=== PATIENT | male | born 1955 | race Caucasian/White ===

== ENCOUNTER 2017-06-30 17:55 | Inpatient (IN) | payer MEDICARE, OTHER ==
[~2017-06-30 17:55] MED LIST: ETOMIDATE 20 MG INJ; SUCCINYLCHOLINE CHLORIDE 100 MG/5 ML SYG IV
[2017-06-30] MEDS: ALBUTEROL 0.5% (NEB) 2.5 MG/0.5 ML AMP INH (18:14)
[2017-06-30] MEDS: IPRATROPIUM (NEB) 0.5 MG/2.5 ML AMP INH (18:14)
[2017-06-30 18:28] LABS: ADD MAN DIFF? NO
[2017-06-30 18:31] LABS: BASOPHILS % 0.2 % (0.0-2.0); EOSINOPHILS # 0.2 10^3/ul (0.0-0.5); EOSINOPHILS % 2.5 % (0.0-7.0); HEMATOCRIT 44.2 % (42.0-52.0); HEMOGLOBIN 13.3 g/dl (14.0-18.0); LYMPHOCYTES # 1.6 10^3/ul (0.8-2.9); LYMPHOCYTES % 17.5 % (15.0-51.0); MEAN CORPUSCULAR HEMOGLOBIN 29.2 pg (29.0-33.0); MEAN CORPUSCULAR HGB CONC 30.1 g/dl (32.0-37.0); MEAN CORPUSCULAR VOLUME 97.1 fl (82.0-101.0); MEAN PLATELET VOLUME 10.7 fl (7.4-10.4); MONOCYTE # 0.8 10^3/ul (0.3-0.9); MONOCYTES % 8.8 % (0.0-11.0); NEUTROPHIL # 6.5 10^3/ul (1.6-7.5); NEUTROPHILS % 70.7 % (39.0-77.0); PLATELET COUNT 201 10^3/UL (140-415); RED BLOOD COUNT 4.55 10^6/ul (4.70-6.10); RED CELL DISTRIBUTION WIDTH 12.8 % (11.5-14.5)
[2017-06-30 18:31] LABS: WHITE BLOOD COUNT 9.2 10^3/ul (4.8-10.8)
[2017-06-30 18:51] LABS: INR 1.02; PROTIME 13.5 Sec (11.9-14.9); PT RATIO 1.1
[2017-06-30 18:52] LABS: PARTIAL THROMBOPLASTIN TIME 26.4 Sec (25.0-35.0)
[2017-06-30 18:54] LABS: LACTIC ACID 1.2 mmol/L (0.5-2.0)
[2017-06-30] MEDS ORDERED: morphine 4 MG/ML VIAL (19:05)
[2017-06-30] MEDS ORDERED: ONDANSETRON 4 MG INJ (19:05)
[2017-06-30 19:06] LABS: ADD UMIC NO; UR ASCORBIC ACID NEGATIVE (NEGATIVE); UR BILIRUBIN (Dip) NEGATIVE (NEGATIVE); UR BLOOD (Dip) NEGATIVE (NEGATIVE); UR CLARITY CLEAR (CLEAR); UR COLOR YELLOW (YELLOW); UR GLUCOSE (Dip) NEGATIVE (NEGATIVE); UR KETONES (Dip) NEGATIVE (NEGATIVE); UR LEUKOCYTE ESTERASE (Dip) NEGATIVE Leu/ul (NEGATIVE); UR NITRITE (Dip) NEGATIVE (NEGATIVE); UR SPECIFIC GRAVITY (Dip) 1.019 (1.003-1.030); UR TOTAL PROTEIN (Dip) NEGATIVE (NEGATIVE); UR UROBILINOGEN (Dip) NEGATIVE (NEGATIVE)
[2017-06-30] MEDS: ONDANSETRON 4 MG INJ IV ×2 (19:07→20:22)
[2017-06-30] MEDS: morphine 4 MG/ML VIAL IV (19:07)
[2017-06-30] MEDS: METHYLPREDNISOLONE 125 MG INJ IV (19:07)
[2017-06-30 19:11] LABS: ALANINE AMINOTRANSFERASE 26 IU/L (13-69); ALBUMIN 4.1 g/dl (3.3-4.9); ALKALINE PHOSPHATASE 68 IU/L (42-121); ASPARTATE AMINO TRANSFERASE 22 IU/L (15-46); BILIRUBIN,INDIRECT 0.6 mg/dl (0-1.1); BILIRUBIN,TOTAL 0.6 mg/dl (0.2-1.3); BLOOD UREA NITROGEN 17 mg/dl (7-20); CHLORIDE 96 mmol/L (97-110); CREATINE KINASE 105 IU/L (23-200); CREATININE 0.67 mg/dl (0.61-1.24); GLUCOSE 121 mg/dl (70-220); LIPASE 88 U/L (23-300); POTASSIUM 4.7 mmol/L (3.5-5.1); SODIUM 147 mmol/L (135-144); TOTAL PROTEIN 7.8 g/dl (6.1-8.1)
[2017-06-30 19:19] LABS: ANION GAP 12 (8-16)
[2017-06-30 19:22] LABS: CARBON DIOXIDE 44 mmol/L (21-31)
[2017-06-30 19:25] LABS: B-TYPE NATRIURETIC PEPTIDE 45 PG/ML (0-125); CK INDEX 2.8
[2017-06-30 19:31] LABS: CK-MB 2.95 ng/ml (0.0-2.4); TROPONIN-I < 0.012 ng/ml (0.000-0.120)
[2017-06-30 19:36] LABS: AADO2 Arterial 67.8 mmHg (7.0-24.0); Allen Test ACCEPTAB; Arterial Base Excess 8.9 mmol/L (-3.0-3); Arterial Fraction of Oxyhgb 93.8 % (93.0-99.0); Arterial HCO3 41.3 mmol/L (22.0-26.0); Arterial MetHb 0.3 % (0.0-1.5); Arterial Total Hemglobin 14.1 g/dl (12.0-18.0); Arterial pCO2 107.2 mmhg (35-45); MODE NASAL CANNULA; Site Right Radial
[2017-06-30 20:32] LABS: ETHANOL < 10.0 mg/dl
[2017-06-30 21:02] LABS: AADO2 Arterial 107.3 mmHg (7.0-24.0); Allen Test ACCEPTAB; Arterial Base Excess 10.8 mmol/L (-3.0-3); Arterial Blood Gas Oxygen Sat 99.2 mmHG (95.0-98.0); Arterial COHb 0.5 % (0.0-3.0); Arterial Fraction of Oxyhgb 98.2 % (93.0-99.0); Arterial HCO3 45.2 mmol/L (22.0-26.0); Arterial MetHb 0.5 % (0.0-1.5); Arterial Total Hemglobin 14.2 g/dl (12.0-18.0); Arterial pCO2 131.4 mmhg (35-45); Blood Gas IEPAP 15/5; MODE MASK - BIPAP; Site Left Radial
[2017-06-30] MEDS: LORAZEPAM 2 MG INJ IV (21:10)
[2017-06-30] MEDS: SUCCINYLCHOLINE CHLORIDE 100 MG/5 ML SYG IV (21:20)
[2017-06-30] MEDS: ETOMIDATE 20 MG INJ IV (21:20)
[2017-06-30] MEDS: PROPOFOL 100 ML IV (21:38)
[2017-06-30 23:26] LABS: AADO2 Arterial 155.2 mmHg (7.0-24.0); Allen Test ACCEPTAB; Arterial Base Excess 9.6 mmol/L (-3.0-3); Arterial Blood Gas Oxygen Sat 99.6 mmHG (95.0-98.0); Arterial COHb 0.6 % (0.0-3.0); Arterial Fraction of Oxyhgb 98.6 % (93.0-99.0); Arterial MetHb 0.4 % (0.0-1.5); Arterial Total Hemglobin 14.2 g/dl (12.0-18.0); Arterial pCO2 118.4 mmhg (35-45); MODE VENT - AC; Site Left Radial
[2017-06-30] MEDS ORDERED: GLUCAGON 1 MG INJ IM (23:45)
[2017-06-30] MEDS ORDERED: DEXTROSE 50% 50 ML SYRINGE IV ×2 (23:45)
[2017-06-30] MEDS ORDERED: GLUCOSE GEL 15 GRAM TUBE PO ×2 (23:45)
[2017-06-30] MEDS ORDERED: GLUCOSE GEL 15 GRAM TUBE BUCCAL (23:45)
[2017-07-01] MEDS ORDERED: FENTAnyl (DRIP) 1000 mcg/100mL 100 ML IV
[2017-07-01] MEDS: PROPOFOL 100 ML IV ×7 (00:22→23:36)
[2017-07-01] MEDS ORDERED: ACETAMINOPHEN 650 MG SUPP PR (00:30)
[2017-07-01] MEDS ORDERED: ONDANSETRON 4 MG INJ IV (00:30)
[2017-07-01] MEDS ORDERED: MIDAZOLAM (DRIP) 50 mg/50 mL 50 ML IV ×2 (00:30→01:00)
[2017-07-01] MEDS: FENTAnyl (DRIP) 1000 mcg/100mL 100 ML IV ×2 (01:03→19:41)
[2017-07-01] MEDS: DEXTROSE 5%-0.45% NACL 1,000 ML IV ×3 (01:19→19:44)
[2017-07-01 01:36] LABS: AADO2 Arterial 191.5 mmHg (7.0-24.0); Allen Test ACCEPTAB; Arterial Base Excess 10.2 mmol/L (-3.0-3); Arterial Blood Gas Oxygen Sat 95.3 mmHG (95.0-98.0); Arterial COHb 0.7 % (0.0-3.0); Arterial Fraction of Oxyhgb 94.3 % (93.0-99.0); Arterial HCO3 39.8 mmol/L (22.0-26.0); Arterial MetHb 0.3 % (0.0-1.5); Arterial Total Hemglobin 13.9 g/dl (12.0-18.0); Arterial pCO2 80.4 mmhg (35-45); Blood Gas Mean Airway Pressure 16; MODE VENT - AC; Site Right Radial
[2017-07-01] MEDS: IPRATROPIUM (HFA) 12.9 GM INHALER INH ×4 (02:00→19:05)
[2017-07-01] MEDS: ALBUTEROL HFA 8 GM INHALER INH ×4 (02:00→19:05)
[2017-07-01] MEDS ORDERED: IPRATROPIUM (HFA) 12.9 GM INHALER INH ×2 (02:00→08:00)
[2017-07-01] MEDS ORDERED: ALBUTEROL HFA 8 GM INHALER INH ×2 (02:00→08:00)
[2017-07-01 05:45] LABS: AADO2 Arterial 203.9 mmHg (7.0-24.0); Allen Test ACCEPTAB; Arterial Base Excess 10.5 mmol/L (-3.0-3); Arterial Blood Gas Oxygen Sat 98.4 mmHG (95.0-98.0); Arterial COHb 0.5 % (0.0-3.0); Arterial Fraction of Oxyhgb 97.7 % (93.0-99.0); Arterial HCO3 34.6 mmol/L (22.0-26.0); Arterial MetHb 0.2 % (0.0-1.5); Arterial Total Hemglobin 13.5 g/dl (12.0-18.0); Arterial pCO2 43.4 mmhg (35-45); Blood Gas Mean Airway Pressure 17; MODE VENT - AC; Site Right Radial
[2017-07-01 05:49] LABS: ADD MAN DIFF? NO
[2017-07-01 05:56] LABS: HEMATOCRIT 40.7 % (42.0-52.0); HEMOGLOBIN 12.6 g/dl (14.0-18.0); LYMPHOCYTES # 0.6 10^3/ul (0.8-2.9); LYMPHOCYTES % 6.6 % (15.0-51.0); MEAN CORPUSCULAR VOLUME 93.8 fl (82.0-101.0); MEAN PLATELET VOLUME 11.1 fl (7.4-10.4); MONOCYTE # 0.2 10^3/ul (0.3-0.9); MONOCYTES % 2.1 % (0.0-11.0); NEUTROPHIL # 8.2 10^3/ul (1.6-7.5); PLATELET COUNT 189 10^3/UL (140-415); RED BLOOD COUNT 4.34 10^6/ul (4.70-6.10); RED CELL DISTRIBUTION WIDTH 12.9 % (11.5-14.5)
[2017-07-01 05:56] LABS: WHITE BLOOD COUNT 9.1 10^3/ul (4.8-10.8)
[2017-07-01 06:06] LABS: HEMOGLOBIN A1C 6.8 % (0-5.9)
[2017-07-01] MEDS: INSULIN ASPART [NOVOLOG] 3 ML PEN SC ×5 (06:08→23:39)
[2017-07-01] MEDS: METHYLPREDNISOLONE 125 MG INJ IV ×3 (06:14→18:06)
[2017-07-01 06:17] LABS: ANION GAP 16 (8-16); BLOOD UREA NITROGEN 20 mg/dl (7-20); CALCIUM 9.2 mg/dl (8.4-10.2); CARBON DIOXIDE 34 mmol/L (21-31); CHLORIDE 99 mmol/L (97-110); CREATININE 0.65 mg/dl (0.61-1.24); GLUCOSE 223 mg/dl (70-220); POTASSIUM 4.3 mmol/L (3.5-5.1); SODIUM 145 mmol/L (135-144)
[2017-07-01] MEDS: SOD CHLORIDE 0.9% 250 ML IV (06:53)
[2017-07-01] MEDS: SALMETEROL/FLUTICASONE 500/50 INHA INH ×2 (09:00→21:00)
[2017-07-01] MEDS: HEPARIN 5,000 UNIT/0.5 ML VIAL SC ×2 (10:27→20:46)
[2017-07-01] MEDS: INSULIN GLARGINE [LANtus] 3 ML PEN SC (20:45)
[2017-07-02] MEDS: METHYLPREDNISOLONE 125 MG INJ IV ×5 (00:06→23:34)
[2017-07-02] MEDS: PROPOFOL 100 ML IV ×4 (02:55→12:11)
[2017-07-02] MEDS: INSULIN ASPART [NOVOLOG] 3 ML PEN SC ×4 (05:39→23:37)
[2017-07-02 05:40] LABS: ADD MAN DIFF? NO
[2017-07-02] MEDS: DEXTROSE 5%-0.45% NACL 1,000 ML IV ×2 (05:40→21:39)
[2017-07-02 05:58] LABS: WHITE BLOOD COUNT 10.8 10^3/ul (4.8-10.8)
[2017-07-02 05:58] LABS: HEMATOCRIT 38.5 % (42.0-52.0); HEMOGLOBIN 12.4 g/dl (14.0-18.0); LYMPHOCYTES # 0.9 10^3/ul (0.8-2.9); LYMPHOCYTES % 8.1 % (15.0-51.0); MEAN CORPUSCULAR HEMOGLOBIN 29.4 pg (29.0-33.0); MEAN CORPUSCULAR HGB CONC 32.2 g/dl (32.0-37.0); MEAN CORPUSCULAR VOLUME 91.2 fl (82.0-101.0); MEAN PLATELET VOLUME 11.8 fl (7.4-10.4); MONOCYTE # 0.3 10^3/ul (0.3-0.9); MONOCYTES % 2.9 % (0.0-11.0); NEUTROPHIL # 9.6 10^3/ul (1.6-7.5); NEUTROPHILS % 88.4 % (39.0-77.0); PLATELET COUNT 196 10^3/UL (140-415); RED BLOOD COUNT 4.22 10^6/ul (4.70-6.10); RED CELL DISTRIBUTION WIDTH 13.4 % (11.5-14.5)
[2017-07-02 06:33] LABS: ANION GAP 15 (8-16); BLOOD UREA NITROGEN 20 mg/dl (7-20); CALCIUM 9.1 mg/dl (8.4-10.2); CARBON DIOXIDE 31 mmol/L (21-31); CHLORIDE 99 mmol/L (97-110); CREATININE 0.66 mg/dl (0.61-1.24); GLUCOSE 205 mg/dl (70-220); MAGNESIUM 1.9 mg/dl (1.7-2.5); POTASSIUM 3.4 mmol/L (3.5-5.1); SODIUM 142 mmol/L (135-144)
[2017-07-02] MEDS: IPRATROPIUM (HFA) 12.9 GM INHALER INH ×2 (07:20→13:29)
[2017-07-02] MEDS: ALBUTEROL HFA 8 GM INHALER INH ×2 (07:20→13:29)
[2017-07-02 07:50] LABS: AADO2 Arterial 159.2 mmHg (7.0-24.0); Allen Test ACCEPTAB; Arterial Blood Gas Oxygen Sat 96.6 mmHG (95.0-98.0); Arterial COHb 0.3 % (0.0-3.0); Arterial Fraction of Oxyhgb 96.1 % (93.0-99.0); Arterial HCO3 30.2 mmol/L (22.0-26.0); Arterial MetHb 0.2 % (0.0-1.5); Arterial Total Hemglobin 13.2 g/dl (12.0-18.0); Arterial pCO2 37.7 mmhg (35-45); MODE VENT - AC; Site Right Radial
[2017-07-02] MEDS: FENTAnyl (DRIP) 1000 mcg/100mL 100 ML IV (07:51)
[2017-07-02] MEDS: SALMETEROL/FLUTICASONE 500/50 INHA INH ×2 (08:18→21:00)
[2017-07-02] MEDS: HEPARIN 5,000 UNIT/0.5 ML VIAL SC ×2 (08:24→21:37)
[2017-07-02] MEDS: FUROSEMIDE 40 MG INJ IV (10:38)
[2017-07-02] MEDS: POTASSIUM CHLORIDE 100 ML IVPB ×2 (10:38→12:09)
[2017-07-02] MEDS: LORAZEPAM 2 MG INJ IV ×3 (13:43→23:29)
[2017-07-02 17:34] LABS: AADO2 Arterial 110.4 mmHg (7.0-24.0); Allen Test ACCEPTAB; Arterial Base Excess 6.3 mmol/L (-3.0-3); Arterial Blood Gas Oxygen Sat 96.9 mmHG (95.0-98.0); Arterial COHb 0.2 % (0.0-3.0); Arterial Fraction of Oxyhgb 96.3 % (93.0-99.0); Arterial HCO3 34.5 mmol/L (22.0-26.0); Arterial MetHb 0.4 % (0.0-1.5); Arterial Total Hemglobin 14.1 g/dl (12.0-18.0); Blood Gas PS 10; MODE VENT - CPAP; Site Right Radial
[2017-07-02] MEDS ORDERED: FENTAnyl (DRIP) 1000 mcg/100mL 100 ML IV (18:00)
[2017-07-02] MEDS: INSULIN GLARGINE [LANtus] 3 ML PEN SC (20:06)
[2017-07-02] MEDS: ALBUTEROL/IPRATROPIUM (NEB) 3 ML AMP HHN (20:41)
[2017-07-03] MEDS: ALBUTEROL/IPRATROPIUM (NEB) 3 ML AMP HHN ×4 (01:01→19:27)
[2017-07-03 05:52] LABS: ADD MAN DIFF? NO
[2017-07-03 05:59] LABS: WHITE BLOOD COUNT 15.8 10^3/ul (4.8-10.8)
[2017-07-03 05:59] LABS: BASOPHILS % 0.1 % (0.0-2.0); HEMATOCRIT 40.6 % (42.0-52.0); HEMOGLOBIN 12.6 g/dl (14.0-18.0); LYMPHOCYTES # 0.6 10^3/ul (0.8-2.9); MEAN CORPUSCULAR VOLUME 93.5 fl (82.0-101.0); MEAN PLATELET VOLUME 11.3 fl (7.4-10.4); MONOCYTE # 0.4 10^3/ul (0.3-0.9); MONOCYTES % 2.2 % (0.0-11.0); NEUTROPHIL # 14.8 10^3/ul (1.6-7.5); NEUTROPHILS % 93.2 % (39.0-77.0); PLATELET COUNT 194 10^3/UL (140-415); RED BLOOD COUNT 4.34 10^6/ul (4.70-6.10); RED CELL DISTRIBUTION WIDTH 13.6 % (11.5-14.5)
[2017-07-03] MEDS: INSULIN ASPART [NOVOLOG] 3 ML PEN SC ×4 (06:00→21:15)
[2017-07-03] MEDS: METHYLPREDNISOLONE 125 MG INJ IV ×4 (06:00→23:54)
[2017-07-03 06:37] LABS: ANION GAP 16 (8-16); BLOOD UREA NITROGEN 26 mg/dl (7-20); CALCIUM 9.1 mg/dl (8.4-10.2); CARBON DIOXIDE 36 mmol/L (21-31); CHLORIDE 100 mmol/L (97-110); CREATININE 0.77 mg/dl (0.61-1.24); GLUCOSE 164 mg/dl (70-220); MAGNESIUM 2.1 mg/dl (1.7-2.5); PHOSPHORUS 4.2 mg/dl (2.5-4.9); SODIUM 148 mmol/L (135-144)
[2017-07-03] MEDS: FUROSEMIDE 40 MG INJ IV ×2 (07:43→18:23)
[2017-07-03] MEDS: morphine 2 MG INJ IV ×3 (07:43→15:26)
[2017-07-03] MEDS: LORAZEPAM 2 MG INJ IV ×3 (07:43→13:34)
[2017-07-03] MEDS: HEPARIN 5,000 UNIT/0.5 ML VIAL SC ×2 (07:55→21:16)
[2017-07-03] MEDS: SALMETEROL/FLUTICASONE 500/50 INHA INH ×2 (09:00→21:11)
[2017-07-03 09:01] LABS: AADO2 Arterial 86.6 mmHg (7.0-24.0); Allen Test ACCEPTAB; Arterial Base Excess 7.7 mmol/L (-3.0-3); Arterial Blood Gas Oxygen Sat 90.1 mmHG (95.0-98.0); Arterial COHb 0.4 % (0.0-3.0); Arterial Fraction of Oxyhgb 89.6 % (93.0-99.0); Arterial HCO3 34.5 mmol/L (22.0-26.0); Arterial MetHb 0.2 % (0.0-1.5); Arterial pCO2 57.6 mmhg (35-45); MODE NASAL CANNULA; Site Right Radial
[2017-07-03] MEDS: INSULIN GLARGINE [LANtus] 3 ML PEN SC (21:16)
[2017-07-04] MEDS: ALBUTEROL/IPRATROPIUM (NEB) 3 ML AMP HHN ×4 (01:00→19:52)
[2017-07-04] MEDS: ACCU-CHEK XX (02:29)
[2017-07-04 05:27] LABS: ADD MAN DIFF? NO
[2017-07-04 05:30] LABS: BASOPHILS % 0.1 % (0.0-2.0); HEMATOCRIT 42.2 % (42.0-52.0); HEMOGLOBIN 13.2 g/dl (14.0-18.0); LYMPHOCYTES # 0.6 10^3/ul (0.8-2.9); LYMPHOCYTES % 4.8 % (15.0-51.0); MEAN CORPUSCULAR HEMOGLOBIN 29.2 pg (29.0-33.0); MEAN CORPUSCULAR HGB CONC 31.3 g/dl (32.0-37.0); MEAN CORPUSCULAR VOLUME 93.4 fl (82.0-101.0); MEAN PLATELET VOLUME 11.8 fl (7.4-10.4); MONOCYTE # 0.7 10^3/ul (0.3-0.9); MONOCYTES % 5.3 % (0.0-11.0); NEUTROPHIL # 11.5 10^3/ul (1.6-7.5); NEUTROPHILS % 89.3 % (39.0-77.0); PLATELET COUNT 186 10^3/UL (140-415); RED BLOOD COUNT 4.52 10^6/ul (4.70-6.10); RED CELL DISTRIBUTION WIDTH 13.5 % (11.5-14.5)
[2017-07-04 05:30] LABS: WHITE BLOOD COUNT 12.9 10^3/ul (4.8-10.8)
[2017-07-04] MEDS: FUROSEMIDE 40 MG INJ IV ×2 (05:33→17:13)
[2017-07-04] MEDS: METHYLPREDNISOLONE 125 MG INJ IV ×4 (05:33→23:30)
[2017-07-04 05:56] LABS: ANION GAP 13 (8-16); BLOOD UREA NITROGEN 26 mg/dl (7-20); CALCIUM 9.1 mg/dl (8.4-10.2); CARBON DIOXIDE 38 mmol/L (21-31); CHLORIDE 101 mmol/L (97-110); CREATININE 0.74 mg/dl (0.61-1.24); GLUCOSE 127 mg/dl (70-220); PHOSPHORUS 3.9 mg/dl (2.5-4.9); POTASSIUM 3.7 mmol/L (3.5-5.1); SODIUM 148 mmol/L (135-144)
[2017-07-04 07:10] LABS: MAGNESIUM 2.4 mg/dl (1.7-2.5)
[2017-07-04] MEDS: HEPARIN 5,000 UNIT/0.5 ML VIAL SC ×2 (08:23→21:38)
[2017-07-04] MEDS: INSULIN ASPART [NOVOLOG] 3 ML PEN SC ×4 (08:29→21:38)
[2017-07-04] MEDS: POTASSIUM CHLORIDE (SR) 20 MEQ TAB PO (09:39)
[2017-07-04] MEDS: SALMETEROL/FLUTICASONE 500/50 INHA INH ×2 (10:45→21:39)
[2017-07-04] MEDS: INSULIN GLARGINE [LANtus] 3 ML PEN SC (21:37)
[2017-07-04] MEDS: DIPHENHYDRAMINE 50 MG INJ IV (23:30)
[2017-07-05] MEDS: DIAZEPAM 5 MG TAB PO ×2 (01:28→05:28)
[2017-07-05] MEDS: ALBUTEROL/IPRATROPIUM (NEB) 3 ML AMP HHN ×3 (01:28→07:37)
[2017-07-05] MEDS: ACCU-CHEK XX (01:29)
[2017-07-05] MEDS: ACETAMINOPHEN 325 MG TAB PO (02:34)
[2017-07-05] MEDS: LORAZEPAM 2 MG INJ IV (04:18)
[2017-07-05] MEDS ORDERED: DIAZEPAM 5 MG/ML SYG IV (05:00)
[2017-07-05 05:02] LABS: AADO2 Arterial 67.5 mmHg (7.0-24.0); Allen Test ACCEPTAB; Arterial Base Excess 3.9 mmol/L (-3.0-3); Arterial Blood Gas Oxygen Sat 96.6 mmHG (95.0-98.0); Arterial COHb 0.2 % (0.0-3.0); Arterial Fraction of Oxyhgb 96.2 % (93.0-99.0); Arterial MetHb 0.2 % (0.0-1.5); Arterial Total Hemglobin 14.3 g/dl (12.0-18.0); Arterial pCO2 45.6 mmhg (35-45); Blood Gas IEPAP 20/8; MODE MASK - BIPAP; Site Right Radial
[2017-07-05] MEDS: FUROSEMIDE 40 MG INJ IV (05:27)
[2017-07-05] MEDS: METHYLPREDNISOLONE 125 MG INJ IV ×2 (05:27→12:24)
[2017-07-05] MEDS: HYDROCODONE/APAP (10/325) TAB PO (05:28)
[2017-07-05 06:27] LABS: CREATINE KINASE 123 IU/L (23-200)
[2017-07-05] MEDS: SALMETEROL/FLUTICASONE 500/50 INHA INH (09:04)
[2017-07-05] MEDS: INSULIN ASPART [NOVOLOG] 3 ML PEN SC ×2 (09:05→12:25)
[2017-07-05] MEDS: HEPARIN 5,000 UNIT/0.5 ML VIAL SC (09:06)
[2017-07-05] MEDS: DOCUSATE SODIUM 100 MG CAP PO (12:30)
== END 2017-07-05 13:41 | disposition home or self-care (01) | DRG 208 ==
LOC: E/R 17:55 → ICU 07-03 10:00 → MS1 07-03 18:10 → ICU 21:36
PROC: 5A1945Z Respiratory Ventilation, 24-96 Consecutive Hours (ICD-10-PCS; principal; 2017-06-30)
PROC: 0BH17EZ Insertion of Endotracheal Airway into Trachea, Via Natural or Artificial Opening (ICD-10-PCS; 2017-06-30)
DX: J44.1 Chronic obstructive pulmonary disease with (acute) exacerbation (principal); J96.22 Acute and chronic respiratory failure with hypercapnia; I50.23 Acute on chronic systolic (congestive) heart failure; J96.21 Acute and chronic respiratory failure with hypoxia; Z68.42 Body mass index [BMI] 45.0-49.9, adult; I11.0 Hypertensive heart disease with heart failure; E66.01 Morbid (severe) obesity due to excess calories; E11.9 Type 2 diabetes mellitus without complications; F31.9 Bipolar disorder, unspecified; N40.0 Benign prostatic hyperplasia without lower urinary tract symptoms; E78.5 Hyperlipidemia, unspecified; Z87.891 Personal history of nicotine dependence; G47.33 Obstructive sleep apnea (adult) (pediatric)
CPT/HCPCS: 31500; 36415; 36600; 71045; 80048; 80053; 80307; 81003; 82550; 82553; 82803; 82962; 83036; 83605; 83690; 83735; 83880; 84100; 84484; 85025; 85610; 85730; 87040; 87081; 87086; 93005; 94002; 94003; 94640; 94644; 94660; 94664; 94770; 96374; 96375; 96376; 97162; 99291-25

== ENCOUNTER 2017-11-22 22:36 | Inpatient (IN) | payer MEDICARE, OTHER ==
[2017-11-22 23:06] LABS: ADD MAN DIFF? NO
[2017-11-22 23:09] LABS: WHITE BLOOD COUNT 12.3 10^3/ul (4.8-10.8)
[2017-11-22 23:09] LABS: ABNORMAL IP MESSAGE 1; BASOPHILS % 0.2 % (0.0-2.0); HEMOGLOBIN 15.2 g/dl (14.0-18.0); LYMPHOCYTES # 0.3 10^3/ul (0.8-2.9); LYMPHOCYTES % 2.3 % (15.0-51.0); MEAN CORPUSCULAR HEMOGLOBIN 29.7 pg (29.0-33.0); MEAN CORPUSCULAR HGB CONC 30.4 g/dl (32.0-37.0); MEAN CORPUSCULAR VOLUME 97.7 fl (82.0-101.0); MEAN PLATELET VOLUME 10.6 fl (7.4-10.4); MONOCYTE # 1.1 10^3/ul (0.3-0.9); MONOCYTES % 8.8 % (0.0-11.0); NEUTROPHIL # 10.9 10^3/ul (1.6-7.5); NEUTROPHILS % 88.2 % (39.0-77.0); PLATELET COUNT 240 10^3/UL (140-415); POSITIVE DIFF @See below; RED BLOOD COUNT 5.12 10^6/ul (4.70-6.10); RED CELL DISTRIBUTION WIDTH 12.5 % (11.5-14.5)
[2017-11-22 23:27] LABS: AADO2 Arterial 337.6 mmHg (7.0-24.0); Arterial Base Excess 3.1 mmol/L (-3.0-3); Arterial Blood Gas Oxygen Sat 99.4 mmHG (95.0-98.0); Arterial Fraction of Oxyhgb 97.1 % (93.0-99.0); Arterial HCO3 34.3 mmol/L (22.0-26.0); Arterial MetHb 0.3 % (0.0-1.5); Arterial Total Hemglobin 15.9 g/dl (12.0-18.0); Arterial pCO2 86.4 mmhg (35-45); MODE BCPAP; Site LB
[2017-11-22 23:28] LABS: INR 0.98; PROTIME 13.1 Sec (11.9-14.9)
[2017-11-22 23:38] LABS: TROPONIN-I < 0.012 ng/ml (0.000-0.120)
[2017-11-23 00:01] LABS: B-TYPE NATRIURETIC PEPTIDE 264 PG/ML (0-125)
[2017-11-23 00:33] LABS: ALANINE AMINOTRANSFERASE 27 IU/L (13-69); ALBUMIN 3.5 g/dl (3.3-4.9); ALKALINE PHOSPHATASE 77 IU/L (42-121); ASPARTATE AMINO TRANSFERASE 60 IU/L (15-46); BILIRUBIN,INDIRECT 0.7 mg/dl (0-1.1); BILIRUBIN,TOTAL 0.7 mg/dl (0.2-1.3); BLOOD UREA NITROGEN 14 mg/dl (7-20); CALCIUM 9.7 mg/dl (8.4-10.2); CARBON DIOXIDE 37 mmol/L (21-31); CHLORIDE 101 mmol/L (97-110); CREATININE 1.26 mg/dl (0.61-1.24); GLUCOSE 150 mg/dl (70-220); POTASSIUM 4.4 mmol/L (3.5-5.1); SODIUM 142 mmol/L (135-144)
[2017-11-23 00:53] LABS: AADO2 Arterial 108.3 mmHg (7.0-24.0); Arterial Base Excess 2.1 mmol/L (-3.0-3); Arterial Blood Gas Oxygen Sat 92.5 mmHG (95.0-98.0); Arterial COHb 1.9 % (0.0-3.0); Arterial Fraction of Oxyhgb 90.6 % (93.0-99.0); Arterial HCO3 34.3 mmol/L (22.0-26.0); Arterial MetHb 0.2 % (0.0-1.5); Arterial Total Hemglobin 15.7 g/dl (12.0-18.0); Arterial pCO2 95.5 mmhg (35-45); Blood Gas IEPAP 20/8; MODE MASK - BIPAP; Site LB
[2017-11-23] MEDS: CEFEPIME 1GM/50 ML (PMX) 50 ML IVPB (01:06)
[2017-11-23] MEDS ORDERED: VANCOMYCIN IV PER PHARMACY XX (01:30)
[2017-11-23] MEDS ORDERED: ACETAMINOPHEN 650MG/20.3ML CUP PO (01:30)
[2017-11-23] MEDS: VANCOMYCIN 1 GM (PMX) 250 ML IVPB (01:43)
[2017-11-23] MEDS: METHYLPREDNISOLONE 125 MG INJ IV (02:02)
[2017-11-23] MEDS: SOD CHLORIDE 0.9% 1,000 ML IV (03:03)
[2017-11-23 03:36] LABS: Allen Test ACCEPTAB; Arterial Base Excess 1.2 mmol/L (-3.0-3); Arterial Blood Gas Oxygen Sat 92.9 mmHG (95.0-98.0); Arterial COHb 1.6 % (0.0-3.0); Arterial Fraction of Oxyhgb 91.1 % (93.0-99.0); Arterial HCO3 33.1 mmol/L (22.0-26.0); Arterial MetHb 0.3 % (0.0-1.5); Arterial Total Hemglobin 15.3 g/dl (12.0-18.0); Arterial pCO2 93.1 mmhg (35-45); Blood Gas PS 12; MODE MASK - BIPAP; Site Right Radial
[2017-11-23 04:10] LABS: LACTIC ACID 2.3 mmol/L (0.5-2.0)
[2017-11-23] MEDS: SOD CHLORIDE 0.9% 500 ML IV (05:41)
[2017-11-23] MEDS: PIPER-TAZO 3.375 GM IV (PMX) 100 ML IVPB ×4 (05:41→23:58)
[2017-11-23] MEDS: PANTOPRAZOLE 40 MG INJ IV (05:41)
[2017-11-23] MEDS: ALBUTEROL/IPRATROPIUM (NEB) 3 ML AMP NEB ×3 (06:01→19:58)
[2017-11-23 06:43] LABS: ADD UMIC YES; UR ASCORBIC ACID NEGATIVE (NEGATIVE); UR BACTERIA FEW /HPF (NONE SEEN); UR BILIRUBIN (Dip) NEGATIVE (NEGATIVE); UR BLOOD (Dip) 3+ mg/dL (NEGATIVE); UR CLARITY SLIGHTLY CLOUDY (CLEAR); UR COLOR YELLOW (YELLOW); UR GLUCOSE (Dip) 1+ mg/dL (NEGATIVE); UR HYALINE CAST FEW /HPF (NONE SEEN); UR KETONES (Dip) NEGATIVE (NEGATIVE); UR LEUKOCYTE ESTERASE (Dip) NEGATIVE Leu/ul (NEGATIVE); UR MUCUS FEW /HPF (NONE SEEN); UR NITRITE (Dip) NEGATIVE (NEGATIVE); UR RBC > 182 /HPF (0-5); UR SPECIFIC GRAVITY (Dip) 1.017 (1.003-1.030); UR TOTAL PROTEIN (Dip) 1+ mg/dl (NEGATIVE); UR UROBILINOGEN (Dip) NEGATIVE (NEGATIVE); UR WBC 6 /HPF (0-5)
[2017-11-23 07:26] LABS: AADO2 Arterial 203.1 mmHg (7.0-24.0); Allen Test ACCEPTAB; Arterial Base Excess 1.9 mmol/L (-3.0-3); Arterial Blood Gas Oxygen Sat 93.3 mmHG (95.0-98.0); Arterial COHb 1.4 % (0.0-3.0); Arterial Fraction of Oxyhgb 91.8 % (93.0-99.0); Arterial MetHb 0.2 % (0.0-1.5); Arterial Total Hemglobin 14.8 g/dl (12.0-18.0); Arterial pCO2 77.7 mmhg (35-45); Blood Gas IEPAP 24/6; Blood Gas PS 1/; MODE MASK - BIPAP; Site Right Radial
[2017-11-23] MEDS ORDERED: ALBUTEROL HFA 8 GM INHALER INH (08:00)
[2017-11-23] MEDS: SERTRALINE 50 MG TAB PO ×2 (09:00→20:30)
[2017-11-23] MEDS ORDERED: NON-FORMULARY/PATIENT OWN MED (Linaclotide (Linzess) 145 MCG) PO (09:00)
[2017-11-23] MEDS ORDERED: BUMETANIDE 1 MG TAB PO (09:00)
[2017-11-23] MEDS ORDERED: NON-FORMULARY/PATIENT OWN MED (Salmeterol Xinaf-Fluticasone* (Advair*) 1 INH) INHALATION (09:00)
[2017-11-23] MEDS ORDERED: NON-FORMULARY/PATIENT OWN MED (Umeclidinium Brm-Vilanterol Tr (Anoro Ellipta) 1 EACH) INHALATION (09:00)
[2017-11-23] MEDS: EZETIMIBE 10 MG TAB PO (09:00)
[2017-11-23] MEDS: DIAZEPAM 5 MG TAB PO ×3 (09:00→20:30)
[2017-11-23] MEDS: PREGABALIN 100 MG CAP PO ×2 (09:00→21:18)
[2017-11-23 09:22] LABS: ABNORMAL IP MESSAGE 1; HEMOGLOBIN 13.7 g/dl (14.0-18.0); MEAN CORPUSCULAR HEMOGLOBIN 29.8 pg (29.0-33.0); MEAN CORPUSCULAR HGB CONC 30.4 g/dl (32.0-37.0); MEAN CORPUSCULAR VOLUME 97.8 fl (82.0-101.0); MEAN PLATELET VOLUME 10.9 fl (7.4-10.4); PLATELET COUNT 195 10^3/UL (140-415); POSITIVE DIFF @See below
[2017-11-23 09:22] LABS: WHITE BLOOD COUNT 18.2 10^3/ul (4.8-10.8)
[2017-11-23 09:23] LABS: ADD MAN DIFF? YES
[2017-11-23 09:39] LABS: LACTIC ACID 1.8 mmol/L (0.5-2.0)
[2017-11-23 09:42] LABS: ANION GAP 4 (5-13); BLOOD UREA NITROGEN 20 mg/dl (7-20); CALCIUM 9.1 mg/dl (8.4-10.2); CARBON DIOXIDE 35 mmol/L (21-31); CHLORIDE 103 mmol/L (97-110); CREATININE 1.36 mg/dl (0.61-1.24); GLUCOSE 238 mg/dl (70-220); MAGNESIUM 1.8 mg/dl (1.7-2.5); PHOSPHORUS 2.8 mg/dl (2.5-4.9); SODIUM 142 mmol/L (135-144)
[2017-11-23 10:14] LABS: ANISOCYTOSIS 1+ (0-0); BAND NEUTROPHILS #M 4.1 10^3/ul (0.0-0.6); BAND NEUTROPHILS % (M) 23 % (0-4); LYMPHOCYTES #M 0.5 10^3/ul (0.8-2.9); LYMPHOCYTES % (M) 3 % (15-51); METAMYELOCYTES #M 0.1 10^3/ul (0.0-0.0); METAMYELOCYTES %M 1 % (0-0); MICROCYTOSIS 1+ (0-0); MONOCYTE #M 0.1 10^3/ul (0.3-0.9); MONOCYTES % (M) 1 % (0-11); PLATELET ESTIMATE NORMAL; POLYCHROMASIA 1+ (0-0); REACTIVE LYMPHOCYTES #M 0.1 10^3/ul (0.0-0.0); REACTIVE LYMPHOCYTES% (M) 1 % (0-0); SEG NEUT #M 13.7 10^3/ul (1.6-7.5); SEGMENTED NEUTROPHILS (M) % 71 % (39-77); SMUDGE%M 4 % (0-0)
[2017-11-23 10:17] LABS: ANION GAP 6 (5-13)
[2017-11-23] MEDS: METHYLPREDNISOLONE 40 MG INJ IV ×3 (10:28→21:27)
[2017-11-23] MEDS: BUMETANIDE 1 MG INJ IV ×2 (10:29→19:37)
[2017-11-23] MEDS: FLUTICASONE 0.05% 16 GM NAS SPRAY NASAL (10:30)
[2017-11-23] MEDS: ENOXAPARIN 30 MG/0.3 ML SYG SC (10:36)
[2017-11-23] MEDS: LOSARTAN 50 MG TAB PO (11:00)
[2017-11-23 11:18] LABS: HEMOGLOBIN A1C 6.2 % (0-5.9)
[2017-11-23 11:49] LABS: B-TYPE NATRIURETIC PEPTIDE 227 PG/ML (0-125)
[2017-11-23] MEDS ORDERED: VANCOMYCIN 1.5 GM in SOD CHLORIDE 0.9% 250 ML IVPB (12:00)
[2017-11-23] MEDS ORDERED: VANCOMYCIN 1.25 GM in SOD CHLORIDE 0.9% 250 ML IVPB (13:00)
[2017-11-23] MEDS: VANCOMYCIN 1.75 GM in SOD CHLORIDE 0.9% 500 ML IVPB (16:44)
[2017-11-23] MEDS: BUDESONIDE (NEB) 0.5MG/2ML AMP INH (19:58)
[2017-11-23] MEDS: ARFORMOTEROL TARTRATE 15MCG/2 ML AMP INH (19:58)
[2017-11-23] MEDS ORDERED: DIAZEPAM 5 MG/ML SYG IV (20:30)
[2017-11-23] MEDS: TAMSULOSIN (SR) 0.4 MG CAP PO (21:19)
[2017-11-23] MEDS: ZOLPIDEM 5 MG TAB PO (21:19)
[2017-11-23] MEDS: HYDROCODONE/APAP (10/325) TAB PO (21:19)
[2017-11-24] MEDS: VANCOMYCIN 1.5 GM in SOD CHLORIDE 0.9% 250 ML IVPB ×2 (00:29→13:22)
[2017-11-24 01:25] LABS: Allen Test ACCEPTAB; Arterial Base Excess 1.1 mmol/L (-3.0-3); Arterial Blood Gas Oxygen Sat 94.2 mmHG (95.0-98.0); Arterial COHb 0.7 % (0.0-3.0); Arterial Fraction of Oxyhgb 93.4 % (93.0-99.0); Arterial HCO3 30.2 mmol/L (22.0-26.0); Arterial MetHb 0.2 % (0.0-1.5); Arterial pCO2 69.5 mmhg (35-45); MODE NASAL CANNULA; Site Right Radial
[2017-11-24] MEDS: ALBUTEROL/IPRATROPIUM (NEB) 3 ML AMP NEB ×4 (02:14→20:06)
[2017-11-24] MEDS: FUROSEMIDE 40 MG INJ IV (03:12)
[2017-11-24 05:19] LABS: AADO2 Arterial 74.3 mmHg (7.0-24.0); Allen Test ACCEPTAB; Arterial Base Excess 8.2 mmol/L (-3.0-3); Arterial Blood Gas Oxygen Sat 85.6 mmHG (95.0-98.0); Arterial COHb 0.6 % (0.0-3.0); Arterial Fraction of Oxyhgb 84.9 % (93.0-99.0); Arterial HCO3 35.9 mmol/L (22.0-26.0); Arterial MetHb 0.2 % (0.0-1.5); Arterial Total Hemglobin 13.6 g/dl (12.0-18.0); Arterial pCO2 64.5 mmhg (35-45); Blood Gas IEPAP 24/6; MODE MASK - CPAP; Site Right Radial
[2017-11-24 05:26] LABS: ADD MAN DIFF? NO
[2017-11-24] MEDS ORDERED: LORAZEPAM 2 MG INJ IV (05:30)
[2017-11-24] MEDS: PIPER-TAZO 3.375 GM IV (PMX) 100 ML IVPB ×4 (05:33→23:42)
[2017-11-24] MEDS: PANTOPRAZOLE 40 MG INJ IV (05:33)
[2017-11-24 05:34] LABS: ABNORMAL IP MESSAGE 1; BASOPHILS % 0.2 % (0.0-2.0); HEMATOCRIT 40.9 % (42.0-52.0); HEMOGLOBIN 12.8 g/dl (14.0-18.0); LYMPHOCYTES # 0.5 10^3/ul (0.8-2.9); LYMPHOCYTES % 2.6 % (15.0-51.0); MEAN CORPUSCULAR HEMOGLOBIN 30.3 pg (29.0-33.0); MEAN CORPUSCULAR HGB CONC 31.3 g/dl (32.0-37.0); MEAN CORPUSCULAR VOLUME 96.7 fl (82.0-101.0); MEAN PLATELET VOLUME 11.7 fl (7.4-10.4); MONOCYTE # 0.9 10^3/ul (0.3-0.9); MONOCYTES % 4.6 % (0.0-11.0); NEUTROPHIL # 18.3 10^3/ul (1.6-7.5); NEUTROPHILS % 89.8 % (39.0-77.0); PLATELET COUNT 209 10^3/UL (140-415); POSITIVE DIFF @See below; RED BLOOD COUNT 4.23 10^6/ul (4.70-6.10); RED CELL DISTRIBUTION WIDTH 13.1 % (11.5-14.5)
[2017-11-24 05:34] LABS: WHITE BLOOD COUNT 20.4 10^3/ul (4.8-10.8)
[2017-11-24] MEDS: BUMETANIDE 1 MG INJ IV ×2 (05:34→17:33)
[2017-11-24] MEDS: METHYLPREDNISOLONE 40 MG INJ IV ×2 (05:34→20:47)
[2017-11-24] MEDS: HALOPERIDOL 5 MG INJ IM ×3 (05:48→08:48)
[2017-11-24 06:00] LABS: CHOLESTEROL 182 mg/dl (100-200)
[2017-11-24 06:00] LABS: CHOL/HDL RATIO 3.8 RATIO; HDL CHOLESTEROL 47 mg/dl (30-78); LDL CHOLESTEROL,CALCULATED 102 mg/dl; TRIGLYCERIDES 166 mg/dl (0-149)
[2017-11-24 06:07] LABS: TROPONIN-I < 0.012 ng/ml (0.000-0.120)
[2017-11-24 06:11] LABS: ALANINE AMINOTRANSFERASE 53 IU/L (13-69); ALBUMIN 3.5 g/dl (3.3-4.9); ALBUMIN/GLOBULIN RATIO 1.09; ALKALINE PHOSPHATASE 67 IU/L (42-121); ASPARTATE AMINO TRANSFERASE 224 IU/L (15-46); BILIRUBIN,INDIRECT 0.5 mg/dl (0-1.1); BILIRUBIN,TOTAL 0.5 mg/dl (0.2-1.3); BLOOD UREA NITROGEN 26 mg/dl (7-20); CALCIUM 9.3 mg/dl (8.4-10.2); CHLORIDE 98 mmol/L (97-110); CREATININE 0.99 mg/dl (0.61-1.24); GLUCOSE 156 mg/dl (70-220); POTASSIUM 3.9 mmol/L (3.5-5.1); SODIUM 142 mmol/L (135-144); TOTAL PROTEIN 6.7 g/dl (6.1-8.1)
[2017-11-24 06:18] LABS: ANION GAP 6 (5-13)
[2017-11-24] MEDS: LORAZEPAM 2 MG INJ IV ×2 (06:19→15:26)
[2017-11-24 06:24] LABS: CARBON DIOXIDE 38 mmol/L (21-31)
[2017-11-24 06:30] LABS: PHOSPHORUS 3.2 mg/dl (2.5-4.9)
[2017-11-24 06:30] LABS: MAGNESIUM 1.8 mg/dl (1.7-2.5)
[2017-11-24] MEDS ORDERED: ETOMIDATE 20 MG INJ (07:00)
[2017-11-24] MEDS ORDERED: SUCCINYLCHOLINE CHLORIDE 100 MG/5 ML SYG IV (07:00)
[2017-11-24] MEDS: ARFORMOTEROL TARTRATE 15MCG/2 ML AMP INH ×2 (08:35→20:06)
[2017-11-24] MEDS: BUDESONIDE (NEB) 0.5MG/2ML AMP INH ×2 (08:35→20:06)
[2017-11-24 08:37] LABS: Allen Test ACCEPTAB; Arterial Base Excess 9.2 mmol/L (-3.0-3); Arterial Blood Gas Oxygen Sat 95.6 mmHG (95.0-98.0); Arterial COHb 0.5 % (0.0-3.0); Arterial MetHb 0.1 % (0.0-1.5); Arterial Total Hemglobin 14.1 g/dl (12.0-18.0); Arterial pCO2 72.7 mmhg (35-45); MODE MASK - VENTI; Site Right Radial
[2017-11-24] MEDS: SERTRALINE 50 MG TAB PO (09:00)
[2017-11-24] MEDS: PREGABALIN 100 MG CAP PO ×2 (09:00→20:46)
[2017-11-24] MEDS: LOSARTAN 50 MG TAB PO (09:00)
[2017-11-24] MEDS: FLUTICASONE 0.05% 16 GM NAS SPRAY NASAL (09:00)
[2017-11-24] MEDS: ENOXAPARIN 30 MG/0.3 ML SYG SC (09:00)
[2017-11-24] MEDS: EZETIMIBE 10 MG TAB PO (09:00)
[2017-11-24] MEDS ORDERED: MISOPROSTOL 200 MCG TAB PO (09:00)
[2017-11-24] MEDS ORDERED: VANCOMYCIN 1.5 GM in SOD CHLORIDE 0.9% 250 ML IVPB (12:00)
[2017-11-24] MEDS: OLANZAPINE 10 MG VIAL IM ×2 (12:15→14:20)
[2017-11-24 17:50] LABS: AADO2 Arterial 165.8 mmHg (7.0-24.0); Allen Test ACCEPTAB; Arterial Base Excess 7.6 mmol/L (-3.0-3); Arterial Blood Gas Oxygen Sat 94.6 mmHG (95.0-98.0); Arterial COHb 0.5 % (0.0-3.0); Arterial Fraction of Oxyhgb 93.6 % (93.0-99.0); Arterial HCO3 39.2 mmol/L (22.0-26.0); Arterial MetHb 0.6 % (0.0-1.5); Arterial Total Hemglobin 14.2 g/dl (12.0-18.0); Arterial pCO2 96.1 mmhg (35-45); MODE NASAL CANNULA; Site Right Radial
[2017-11-24] MEDS ORDERED: PROPOFOL 100 ML (18:12)
[2017-11-24] MEDS ORDERED: FENTAnyl (DRIP) 1000 mcg/100mL 100 ML IV (18:30)
[2017-11-24] MEDS: PROPOFOL 100 ML IV ×3 (19:00→23:24)
[2017-11-24] MEDS: FENTAnyl 1,000 MCG in SOD CHLORIDE 0.9% 80 ML IV (19:35)
[2017-11-24] MEDS: DIAZEPAM 5 MG TAB PO (20:46)
[2017-11-24] MEDS: TAMSULOSIN (SR) 0.4 MG CAP PO (20:46)
[2017-11-24 21:00] LABS: AADO2 Arterial 143.5 mmHg (7.0-24.0); Allen Test ACCEPTAB; Arterial Base Excess 13.5 mmol/L (-3.0-3); Arterial Blood Gas Oxygen Sat 93.9 mmHG (95.0-98.0); Arterial COHb 0.6 % (0.0-3.0); Arterial Fraction of Oxyhgb 93.1 % (93.0-99.0); Arterial HCO3 41.2 mmol/L (22.0-26.0); Arterial MetHb 0.2 % (0.0-1.5); Arterial Total Hemglobin 13.6 g/dl (12.0-18.0); Arterial pCO2 66.5 mmhg (35-45); MODE VENT - AC; Site Right Radial
[2017-11-24] MEDS ORDERED: GLUCOSE GEL 15 GRAM TUBE BUCCAL (21:00)
[2017-11-24] MEDS ORDERED: DEXTROSE 50% 50 ML SYRINGE IV ×2 (21:00)
[2017-11-24] MEDS ORDERED: GLUCOSE GEL 15 GRAM TUBE PO ×2 (21:00)
[2017-11-24] MEDS ORDERED: INSULIN ASPART [NOVOLOG] 3 ML PEN SC (21:00)
[2017-11-24] MEDS ORDERED: GLUCAGON 1 MG INJ IM (21:00)
[2017-11-25] MEDS: Insulin NOVOLOG SS MILD Algorithm (NPO/TPN/ENTERAL FEEDS) SC ×6 (01:00→21:23)
[2017-11-25] MEDS ORDERED: INSULIN ASPART [NOVOLOG] 3 ML PEN SC (01:00)
[2017-11-25] MEDS: VANCOMYCIN 1.5 GM in SOD CHLORIDE 0.9% 250 ML IVPB ×2 (01:39→13:00)
[2017-11-25] MEDS: ALBUTEROL/IPRATROPIUM (NEB) 3 ML AMP NEB ×3 (01:42→14:35)
[2017-11-25] MEDS: PROPOFOL 100 ML IV ×7 (03:02→21:45)
[2017-11-25] MEDS: PIPER-TAZO 3.375 GM IV (PMX) 100 ML IVPB ×4 (05:30→23:42)
[2017-11-25] MEDS: PANTOPRAZOLE 40 MG INJ IV (05:31)
[2017-11-25] MEDS: BUMETANIDE 1 MG INJ IV ×2 (05:31→17:40)
[2017-11-25 05:32] LABS: ADD MAN DIFF? NO
[2017-11-25 05:42] LABS: BASOPHILS % 0.1 % (0.0-2.0); HEMATOCRIT 40.4 % (42.0-52.0); HEMOGLOBIN 12.5 g/dl (14.0-18.0); LYMPHOCYTES # 0.8 10^3/ul (0.8-2.9); LYMPHOCYTES % 5.3 % (15.0-51.0); MEAN CORPUSCULAR HEMOGLOBIN 29.9 pg (29.0-33.0); MEAN CORPUSCULAR HGB CONC 30.9 g/dl (32.0-37.0); MEAN CORPUSCULAR VOLUME 96.7 fl (82.0-101.0); MEAN PLATELET VOLUME 11.2 fl (7.4-10.4); MONOCYTE # 0.9 10^3/ul (0.3-0.9); MONOCYTES % 5.5 % (0.0-11.0); NEUTROPHIL # 13.9 10^3/ul (1.6-7.5); NEUTROPHILS % 88.4 % (39.0-77.0); PLATELET COUNT 232 10^3/UL (140-415); RED BLOOD COUNT 4.18 10^6/ul (4.70-6.10); RED CELL DISTRIBUTION WIDTH 13.3 % (11.5-14.5)
[2017-11-25 05:42] LABS: WHITE BLOOD COUNT 15.7 10^3/ul (4.8-10.8)
[2017-11-25 05:57] LABS: MAGNESIUM 2.2 mg/dl (1.7-2.5)
[2017-11-25 05:57] LABS: PHOSPHORUS 2.6 mg/dl (2.5-4.9)
[2017-11-25 06:06] LABS: BLOOD UREA NITROGEN 30 mg/dl (7-20); CALCIUM 9.3 mg/dl (8.4-10.2); CHLORIDE 99 mmol/L (97-110); CREATININE 0.91 mg/dl (0.61-1.24); GLUCOSE 143 mg/dl (70-220); POTASSIUM 3.8 mmol/L (3.5-5.1); SODIUM 143 mmol/L (135-144)
[2017-11-25 06:24] LABS: ANION GAP 6 (5-13); CARBON DIOXIDE 38 mmol/L (21-31)
[2017-11-25] MEDS: ARFORMOTEROL TARTRATE 15MCG/2 ML AMP INH ×2 (08:00→19:35)
[2017-11-25 08:40] LABS: AADO2 Arterial 202.6 mmHg (7.0-24.0); Allen Test ACCEPTAB; Arterial Base Excess 7.9 mmol/L (-3.0-3); Arterial Blood Gas Oxygen Sat 92.1 mmHG (95.0-98.0); Arterial COHb 0.7 % (0.0-3.0); Arterial Fraction of Oxyhgb 91.5 % (93.0-99.0); Arterial HCO3 33.4 mmol/L (22.0-26.0); Arterial MetHb 0 % (0.0-1.5); Arterial pCO2 49.7 mmhg (35-45); MODE VENT - AC; Site Right Radial
[2017-11-25] MEDS: BUDESONIDE (NEB) 0.5MG/2ML AMP INH ×2 (08:47→19:26)
[2017-11-25] MEDS: FLUTICASONE 0.05% 16 GM NAS SPRAY NASAL (09:00)
[2017-11-25] MEDS: METHYLPREDNISOLONE 40 MG INJ IV ×2 (10:13→21:21)
[2017-11-25] MEDS: LOSARTAN 50 MG TAB PO (10:15)
[2017-11-25] MEDS: SERTRALINE 50 MG TAB PO (10:15)
[2017-11-25] MEDS: EZETIMIBE 10 MG TAB PO (10:15)
[2017-11-25] MEDS: DIAZEPAM 5 MG TAB PO ×2 (10:15→21:20)
[2017-11-25] MEDS: ENOXAPARIN 30 MG/0.3 ML SYG SC (10:19)
[2017-11-25] MEDS: PREGABALIN 100 MG CAP PO ×2 (10:25→21:20)
[2017-11-25] MEDS: FENTAnyl 1,000 MCG in SOD CHLORIDE 0.9% 80 ML IV (17:47)
[2017-11-25] MEDS: ALBUTEROL HFA 8 GM INHALER INH (19:42)
[2017-11-25] MEDS: IPRATROPIUM (HFA) 12.9 GM INHALER INH (19:43)
[2017-11-25] MEDS: TAMSULOSIN (SR) 0.4 MG CAP PO (21:20)
[2017-11-26] MEDS: VANCOMYCIN 1.5 GM in SOD CHLORIDE 0.9% 250 ML IVPB ×2 (00:30→14:15)
[2017-11-26] MEDS: PROPOFOL 100 ML IV ×10 (00:30→23:36)
[2017-11-26] MEDS: Insulin NOVOLOG SS MILD Algorithm (NPO/TPN/ENTERAL FEEDS) SC ×6 (01:17→21:07)
[2017-11-26] MEDS: ALBUTEROL HFA 8 GM INHALER INH ×4 (01:30→19:48)
[2017-11-26] MEDS: IPRATROPIUM (HFA) 12.9 GM INHALER INH ×4 (01:30→19:48)
[2017-11-26] MEDS: FENTAnyl 1,000 MCG in SOD CHLORIDE 0.9% 80 ML IV ×2 (04:40→15:34)
[2017-11-26 04:55] LABS: AADO2 Arterial 149.8 mmHg (7.0-24.0); Allen Test ACCEPTAB; Arterial Base Excess 11.6 mmol/L (-3.0-3); Arterial Blood Gas Oxygen Sat 95.5 mmHG (95.0-98.0); Arterial COHb 0.5 % (0.0-3.0); Arterial Fraction of Oxyhgb 94.8 % (93.0-99.0); Arterial HCO3 40.8 mmol/L (22.0-26.0); Arterial MetHb 0.2 % (0.0-1.5); Arterial Total Hemglobin 13.5 g/dl (12.0-18.0); Arterial pCO2 78.1 mmhg (35-45); MODE VENT - AC; Site Right Radial
[2017-11-26 05:11] LABS: ADD MAN DIFF? NO
[2017-11-26] MEDS: PANTOPRAZOLE 40 MG INJ IV (05:13)
[2017-11-26] MEDS: BUMETANIDE 1 MG INJ IV ×2 (05:13→17:21)
[2017-11-26] MEDS: PIPER-TAZO 3.375 GM IV (PMX) 100 ML IVPB ×3 (05:13→17:21)
[2017-11-26 05:16] LABS: WHITE BLOOD COUNT 11.9 10^3/ul (4.8-10.8)
[2017-11-26 05:16] LABS: BASOPHILS % 0.1 % (0.0-2.0); HEMATOCRIT 41.3 % (42.0-52.0); HEMOGLOBIN 12.6 g/dl (14.0-18.0); LYMPHOCYTES # 0.7 10^3/ul (0.8-2.9); LYMPHOCYTES % 5.8 % (15.0-51.0); MEAN CORPUSCULAR HGB CONC 30.5 g/dl (32.0-37.0); MEAN CORPUSCULAR VOLUME 98.3 fl (82.0-101.0); MEAN PLATELET VOLUME 11.2 fl (7.4-10.4); MONOCYTE # 0.6 10^3/ul (0.3-0.9); MONOCYTES % 4.6 % (0.0-11.0); NEUTROPHIL # 10.5 10^3/ul (1.6-7.5); NEUTROPHILS % 88.1 % (39.0-77.0); PLATELET COUNT 233 10^3/UL (140-415); RED CELL DISTRIBUTION WIDTH 13.2 % (11.5-14.5)
[2017-11-26 05:41] LABS: MAGNESIUM 2.5 mg/dl (1.7-2.5)
[2017-11-26 05:41] LABS: PHOSPHORUS 4.2 mg/dl (2.5-4.9)
[2017-11-26 06:00] LABS: BLOOD UREA NITROGEN 30 mg/dl (7-20); CALCIUM 9.1 mg/dl (8.4-10.2); CHLORIDE 100 mmol/L (97-110); CREATININE 0.92 mg/dl (0.61-1.24); GLUCOSE 178 mg/dl (70-220); SODIUM 145 mmol/L (135-144)
[2017-11-26 06:09] LABS: ANION GAP 10 (5-13)
[2017-11-26 06:11] LABS: CARBON DIOXIDE 35 mmol/L (21-31)
[2017-11-26] MEDS: BUDESONIDE (NEB) 0.5MG/2ML AMP INH ×3 (08:00→19:48)
[2017-11-26] MEDS: ARFORMOTEROL TARTRATE 15MCG/2 ML AMP INH (08:40)
[2017-11-26] MEDS: ENOXAPARIN 30 MG/0.3 ML SYG SC (08:59)
[2017-11-26] MEDS: EZETIMIBE 10 MG TAB PO (09:00)
[2017-11-26] MEDS: FLUTICASONE 0.05% 16 GM NAS SPRAY NASAL (09:00)
[2017-11-26] MEDS: PREGABALIN 100 MG CAP PO ×2 (09:00→21:08)
[2017-11-26] MEDS: LOSARTAN 50 MG TAB PO (09:00)
[2017-11-26] MEDS: DIAZEPAM 5 MG TAB PO ×2 (09:00→21:08)
[2017-11-26] MEDS: SERTRALINE 50 MG TAB PO (09:00)
[2017-11-26] MEDS: METHYLPREDNISOLONE 40 MG INJ IV ×2 (09:01→21:07)
[2017-11-26] MEDS: LORAZEPAM 2 MG INJ IV ×2 (21:07→23:01)
[2017-11-26] MEDS: TAMSULOSIN (SR) 0.4 MG CAP PO (21:08)
[2017-11-26] MEDS ORDERED: LORAZEPAM 2 MG INJ IV (22:00)
[2017-11-26] MEDS: MIDAZOLAM 1 MG/ML 2 ML INJ IV (22:29)
[2017-11-27] MEDS: PIPER-TAZO 3.375 GM IV (PMX) 100 ML IVPB ×4 (00:20→17:28)
[2017-11-27] MEDS: VANCOMYCIN 1.5 GM in SOD CHLORIDE 0.9% 250 ML IVPB ×2 (00:47→13:02)
[2017-11-27] MEDS: Insulin NOVOLOG SS MILD Algorithm (NPO/TPN/ENTERAL FEEDS) SC ×6 (00:49→20:42)
[2017-11-27] MEDS: FENTAnyl 1,000 MCG in SOD CHLORIDE 0.9% 80 ML IV ×2 (01:41→10:45)
[2017-11-27] MEDS: LORAZEPAM 2 MG INJ IV ×3 (01:50→23:01)
[2017-11-27] MEDS: ALBUTEROL HFA 8 GM INHALER INH ×4 (01:55→20:08)
[2017-11-27] MEDS: IPRATROPIUM (HFA) 12.9 GM INHALER INH ×4 (01:55→20:08)
[2017-11-27] MEDS: PROPOFOL 100 ML IV ×4 (03:21→13:00)
[2017-11-27 05:06] LABS: ADD MAN DIFF? NO
[2017-11-27 05:07] LABS: WHITE BLOOD COUNT 11.2 10^3/ul (4.8-10.8)
[2017-11-27 05:07] LABS: BASOPHILS % 0.3 % (0.0-2.0); EOSINOPHILS % 0.2 % (0.0-7.0); HEMATOCRIT 43.4 % (42.0-52.0); LYMPHOCYTES # 1.1 10^3/ul (0.8-2.9); MEAN CORPUSCULAR HEMOGLOBIN 29.7 pg (29.0-33.0); MEAN CORPUSCULAR VOLUME 99.1 fl (82.0-101.0); MEAN PLATELET VOLUME 10.9 fl (7.4-10.4); MONOCYTE # 0.7 10^3/ul (0.3-0.9); MONOCYTES % 6.3 % (0.0-11.0); NEUTROPHIL # 9.2 10^3/ul (1.6-7.5); NEUTROPHILS % 82.5 % (39.0-77.0); PLATELET COUNT 219 10^3/UL (140-415); RED BLOOD COUNT 4.38 10^6/ul (4.70-6.10); RED CELL DISTRIBUTION WIDTH 12.9 % (11.5-14.5)
[2017-11-27 05:19] LABS: AADO2 Arterial 100.8 mmHg (7.0-24.0); Allen Test ACCEPTAB; Arterial Base Excess 13.6 mmol/L (-3.0-3); Arterial Blood Gas Oxygen Sat 90.3 mmHG (95.0-98.0); Arterial COHb 0.6 % (0.0-3.0); Arterial Fraction of Oxyhgb 89.7 % (93.0-99.0); Arterial HCO3 42.7 mmol/L (22.0-26.0); Arterial MetHb 0.1 % (0.0-1.5); Arterial Total Hemglobin 14.3 g/dl (12.0-18.0); Arterial pCO2 76.5 mmhg (35-45); MODE VENT - AC; Site Right Radial
[2017-11-27] MEDS: PANTOPRAZOLE 40 MG INJ IV (05:29)
[2017-11-27] MEDS: BUMETANIDE 1 MG INJ IV (05:29)
[2017-11-27 05:36] LABS: PHOSPHORUS 3.8 mg/dl (2.5-4.9)
[2017-11-27 05:36] LABS: MAGNESIUM 2.4 mg/dl (1.7-2.5)
[2017-11-27 05:40] LABS: BLOOD UREA NITROGEN 28 mg/dl (7-20); CALCIUM 8.9 mg/dl (8.4-10.2); CHLORIDE 99 mmol/L (97-110); CREATININE 0.82 mg/dl (0.61-1.24); GLUCOSE 153 mg/dl (70-220); SODIUM 145 mmol/L (135-144)
[2017-11-27 05:47] LABS: ANION GAP 6 (5-13)
[2017-11-27 05:51] LABS: CARBON DIOXIDE 40 mmol/L (21-31)
[2017-11-27] MEDS: BUDESONIDE (NEB) 0.5MG/2ML AMP INH ×2 (08:09→20:33)
[2017-11-27] MEDS: DIAZEPAM 5 MG TAB PO ×2 (09:31→20:41)
[2017-11-27] MEDS: EZETIMIBE 10 MG TAB PO (09:31)
[2017-11-27] MEDS: SERTRALINE 50 MG TAB PO (09:31)
[2017-11-27] MEDS: METHYLPREDNISOLONE 40 MG INJ IV ×2 (09:31→20:42)
[2017-11-27] MEDS: LOSARTAN 50 MG TAB PO (09:32)
[2017-11-27] MEDS: PREGABALIN 100 MG CAP PO (09:32)
[2017-11-27] MEDS: ENOXAPARIN 30 MG/0.3 ML SYG SC (09:36)
[2017-11-27] MEDS: DEXMEDETOMIDINE HCL 200 MCG in SOD CHLORIDE 0.9% 48 ML IV ×3 (14:23→23:43)
[2017-11-27] MEDS: BUMETANIDE 1 MG TAB PO (17:28)
[2017-11-27] MEDS: TAMSULOSIN (SR) 0.4 MG CAP PO (20:41)
[2017-11-28] MEDS: PIPER-TAZO 3.375 GM IV (PMX) 100 ML IVPB ×5 (00:38→23:36)
[2017-11-28] MEDS: VANCOMYCIN 1.5 GM in SOD CHLORIDE 0.9% 250 ML IVPB ×2 (00:38→13:33)
[2017-11-28] MEDS: Insulin NOVOLOG SS MILD Algorithm (NPO/TPN/ENTERAL FEEDS) SC ×6 (00:44→20:28)
[2017-11-28] MEDS: IPRATROPIUM (HFA) 12.9 GM INHALER INH ×4 (01:36→19:46)
[2017-11-28] MEDS: ALBUTEROL HFA 8 GM INHALER INH ×4 (01:36→19:46)
[2017-11-28] MEDS: LORAZEPAM 2 MG INJ IV ×4 (03:05→23:36)
[2017-11-28] MEDS: DEXMEDETOMIDINE HCL 200 MCG in SOD CHLORIDE 0.9% 48 ML IV ×3 (03:25→21:15)
[2017-11-28] MEDS: FENTAnyl 1,000 MCG in SOD CHLORIDE 0.9% 80 ML IV ×2 (03:27→20:05)
[2017-11-28 05:16] LABS: ADD MAN DIFF? NO
[2017-11-28 05:18] LABS: WHITE BLOOD COUNT 11.5 10^3/ul (4.8-10.8)
[2017-11-28 05:18] LABS: BASOPHILS % 0.3 % (0.0-2.0); EOSINOPHILS % 0.3 % (0.0-7.0); HEMATOCRIT 43.3 % (42.0-52.0); HEMOGLOBIN 13.1 g/dl (14.0-18.0); LYMPHOCYTES # 1.7 10^3/ul (0.8-2.9); MEAN CORPUSCULAR HEMOGLOBIN 29.9 pg (29.0-33.0); MEAN CORPUSCULAR HGB CONC 30.3 g/dl (32.0-37.0); MEAN CORPUSCULAR VOLUME 98.9 fl (82.0-101.0); MEAN PLATELET VOLUME 11.5 fl (7.4-10.4); MONOCYTES % 8.5 % (0.0-11.0); NEUTROPHIL # 8.6 10^3/ul (1.6-7.5); NEUTROPHILS % 74.9 % (39.0-77.0); PLATELET COUNT 191 10^3/UL (140-415); RED BLOOD COUNT 4.38 10^6/ul (4.70-6.10); RED CELL DISTRIBUTION WIDTH 13.2 % (11.5-14.5)
[2017-11-28 05:44] LABS: BLOOD UREA NITROGEN 31 mg/dl (7-20); CALCIUM 9.1 mg/dl (8.4-10.2); CHLORIDE 101 mmol/L (97-110); CREATININE 0.91 mg/dl (0.61-1.24); GLUCOSE 179 mg/dl (70-220); POTASSIUM 4.1 mmol/L (3.5-5.1); SODIUM 145 mmol/L (135-144)
[2017-11-28 05:50] LABS: ANION GAP 5 (5-13)
[2017-11-28 05:57] LABS: CARBON DIOXIDE 39 mmol/L (21-31)
[2017-11-28] MEDS: PANTOPRAZOLE 40 MG INJ IV (06:19)
[2017-11-28] MEDS: BUMETANIDE 1 MG TAB PO ×2 (06:35→18:08)
[2017-11-28] MEDS: BUMETANIDE 0.5 MG TAB PO ×3 (07:35→20:29)
[2017-11-28] MEDS: BUDESONIDE (NEB) 0.5MG/2ML AMP INH ×2 (08:17→19:49)
[2017-11-28] MEDS: EZETIMIBE 10 MG TAB PO (08:47)
[2017-11-28] MEDS: SERTRALINE 50 MG TAB PO (08:47)
[2017-11-28] MEDS: METHYLPREDNISOLONE 40 MG INJ IV ×2 (08:47→20:29)
[2017-11-28] MEDS: LOSARTAN 50 MG TAB PO (08:47)
[2017-11-28] MEDS: DIAZEPAM 5 MG TAB PO ×2 (08:50→20:29)
[2017-11-28] MEDS: ENOXAPARIN 40 MG/0.4 ML SYG SC (08:51)
[2017-11-28 12:25] LABS: VANCOMYCIN,TROUGH 14.6 ug/ml (10.0-20.0)
[2017-11-28] MEDS ORDERED: BUMETANIDE 0.5 MG TAB PO (18:00)
[2017-11-28] MEDS: TAMSULOSIN (SR) 0.4 MG CAP PO (20:29)
[2017-11-29] MEDS: DEXMEDETOMIDINE HCL 200 MCG in SOD CHLORIDE 0.9% 48 ML IV ×4 (00:48→23:17)
[2017-11-29] MEDS: VANCOMYCIN 1.5 GM in SOD CHLORIDE 0.9% 250 ML IVPB ×2 (00:53→13:54)
[2017-11-29] MEDS: Insulin NOVOLOG SS MILD Algorithm (NPO/TPN/ENTERAL FEEDS) SC ×6 (01:03→20:43)
[2017-11-29] MEDS: IPRATROPIUM (HFA) 12.9 GM INHALER INH ×4 (01:13→19:27)
[2017-11-29] MEDS: ALBUTEROL HFA 8 GM INHALER INH ×4 (01:13→19:27)
[2017-11-29] MEDS: LORAZEPAM 2 MG INJ IV ×3 (04:08→23:36)
[2017-11-29] MEDS: PANTOPRAZOLE 40 MG INJ IV (05:18)
[2017-11-29] MEDS: PIPER-TAZO 3.375 GM IV (PMX) 100 ML IVPB ×4 (05:18→23:16)
[2017-11-29] MEDS: BUMETANIDE 0.5 MG TAB PO ×2 (05:19→17:07)
[2017-11-29 05:36] LABS: ADD MAN DIFF? NO
[2017-11-29 05:44] LABS: BASOPHILS % 0.2 % (0.0-2.0); EOSINOPHILS # 0.1 10^3/ul (0.0-0.5); EOSINOPHILS % 0.5 % (0.0-7.0); HEMATOCRIT 43.3 % (42.0-52.0); HEMOGLOBIN 13.3 g/dl (14.0-18.0); LYMPHOCYTES # 1.9 10^3/ul (0.8-2.9); MEAN CORPUSCULAR HEMOGLOBIN 29.4 pg (29.0-33.0); MEAN CORPUSCULAR HGB CONC 30.7 g/dl (32.0-37.0); MEAN CORPUSCULAR VOLUME 95.6 fl (82.0-101.0); MEAN PLATELET VOLUME 11.3 fl (7.4-10.4); MONOCYTES % 7.6 % (0.0-11.0); NEUTROPHIL # 10.1 10^3/ul (1.6-7.5); NEUTROPHILS % 76.9 % (39.0-77.0); PLATELET COUNT 208 10^3/UL (140-415); RED BLOOD COUNT 4.53 10^6/ul (4.70-6.10); RED CELL DISTRIBUTION WIDTH 13.2 % (11.5-14.5)
[2017-11-29 05:44] LABS: WHITE BLOOD COUNT 13.2 10^3/ul (4.8-10.8)
[2017-11-29 06:23] LABS: BLOOD UREA NITROGEN 33 mg/dl (7-20); CHLORIDE 97 mmol/L (97-110); Estimated GFR > 60 mL/min (>60); GLUCOSE 145 mg/dl (70-220); POTASSIUM 3.6 mmol/L (3.5-5.1); SODIUM 146 mmol/L (135-144)
[2017-11-29 06:32] LABS: ANION GAP 11 (5-13)
[2017-11-29 06:50] LABS: CARBON DIOXIDE 38 mmol/L (21-31)
[2017-11-29] MEDS: DIAZEPAM 5 MG TAB PO ×2 (08:14→20:44)
[2017-11-29] MEDS: SERTRALINE 50 MG TAB PO (08:14)
[2017-11-29] MEDS: EZETIMIBE 10 MG TAB PO (08:14)
[2017-11-29] MEDS: LOSARTAN 50 MG TAB PO (08:14)
[2017-11-29] MEDS: METHYLPREDNISOLONE 40 MG INJ IV ×2 (08:15→20:44)
[2017-11-29] MEDS: BUDESONIDE (NEB) 0.5MG/2ML AMP INH ×2 (08:36→20:00)
[2017-11-29] MEDS: morphine 2 MG INJ IV (09:49)
[2017-11-29] MEDS: ENOXAPARIN 40 MG/0.4 ML SYG SC (09:52)
[2017-11-29 10:58] LABS: AADO2 Arterial 83.8 mmHg (7.0-24.0); Allen Test ACCEPTAB; Arterial Blood Gas Oxygen Sat 84.4 mmHG (95.0-98.0); Arterial COHb 0.8 % (0.0-3.0); Arterial Fraction of Oxyhgb 83.6 % (93.0-99.0); Arterial HCO3 45.3 mmol/L (22.0-26.0); Arterial MetHb 0.2 % (0.0-1.5); Arterial Total Hemglobin 14.8 g/dl (12.0-18.0); Arterial pCO2 69.3 mmhg (35-45); Blood Gas PS 10; MODE VENT - CPAP; Site Left Radial
[2017-11-29] MEDS: QUETIAPINE 25 MG TAB NGT ×2 (13:06→20:44)
[2017-11-29] MEDS: TAMSULOSIN (SR) 0.4 MG CAP PO (20:44)
[2017-11-30] MEDS: PROPOFOL 100 ML IV ×8 (00:24→23:34)
[2017-11-30] MEDS: VANCOMYCIN 1.5 GM in SOD CHLORIDE 0.9% 250 ML IVPB ×2 (00:26→13:30)
[2017-11-30] MEDS: ALBUTEROL HFA 8 GM INHALER INH ×4 (01:10→19:30)
[2017-11-30] MEDS: IPRATROPIUM (HFA) 12.9 GM INHALER INH ×4 (01:10→19:30)
[2017-11-30] MEDS: Insulin NOVOLOG SS MILD Algorithm (NPO/TPN/ENTERAL FEEDS) SC ×6 (01:19→21:00)
[2017-11-30 05:02] LABS: ADD MAN DIFF? NO; BASOPHILS % 0.2 % (0.0-2.0); EOSINOPHILS # 0.1 10^3/ul (0.0-0.5); EOSINOPHILS % 1.3 % (0.0-7.0); HEMATOCRIT 43.6 % (42.0-52.0); HEMOGLOBIN 13.5 g/dl (14.0-18.0); LYMPHOCYTES # 1.4 10^3/ul (0.8-2.9); MEAN CORPUSCULAR HEMOGLOBIN 29.4 pg (29.0-33.0); MEAN PLATELET VOLUME 11.2 fl (7.4-10.4); MONOCYTE # 0.6 10^3/ul (0.3-0.9); MONOCYTES % 5.4 % (0.0-11.0); NEUTROPHIL # 8.7 10^3/ul (1.6-7.5); NEUTROPHILS % 79.4 % (39.0-77.0); PLATELET COUNT 192 10^3/UL (140-415); RED BLOOD COUNT 4.59 10^6/ul (4.70-6.10); RED CELL DISTRIBUTION WIDTH 13.1 % (11.5-14.5)
[2017-11-30] MEDS: PIPER-TAZO 3.375 GM IV (PMX) 100 ML IVPB (05:15)
[2017-11-30] MEDS: BUMETANIDE 0.5 MG TAB PO ×2 (05:15→18:15)
[2017-11-30] MEDS: PANTOPRAZOLE 40 MG INJ IV (05:15)
[2017-11-30] MEDS: FENTAnyl 1,000 MCG in SOD CHLORIDE 0.9% 80 ML IV ×2 (05:25→18:57)
[2017-11-30 05:29] LABS: ANION GAP 6 (5-13); BLOOD UREA NITROGEN 32 mg/dl (7-20); CALCIUM 8.9 mg/dl (8.4-10.2); CARBON DIOXIDE 39 mmol/L (21-31); CHLORIDE 100 mmol/L (97-110); CREATININE 0.77 mg/dl (0.61-1.24); Estimated GFR > 60 mL/min (>60); GLUCOSE 119 mg/dl (70-220); POTASSIUM 3.5 mmol/L (3.5-5.1); SODIUM 145 mmol/L (135-144)
[2017-11-30] MEDS ORDERED: VANCOMYCIN IV PER PHARMACY XX (08:30)
[2017-11-30] MEDS: BUDESONIDE (NEB) 0.5MG/2ML AMP INH ×2 (08:34→19:30)
[2017-11-30] MEDS: METHYLPREDNISOLONE 40 MG INJ IV (10:13)
[2017-11-30] MEDS: DIAZEPAM 5 MG TAB PO (10:14)
[2017-11-30] MEDS: EZETIMIBE 10 MG TAB PO (10:14)
[2017-11-30] MEDS: LOSARTAN 50 MG TAB PO (10:14)
[2017-11-30] MEDS: SERTRALINE 50 MG TAB PO (10:14)
[2017-11-30] MEDS: QUETIAPINE 25 MG TAB NGT ×2 (10:15→21:47)
[2017-11-30] MEDS: ENOXAPARIN 40 MG/0.4 ML SYG SC (10:21)
[2017-11-30] MEDS: DOCUSATE SODIUM 100 MG CAP PO (12:30)
[2017-11-30] MEDS: DOCUSATE SODIUM 10 MG/ML (10ML CUP) PO (13:30)
[2017-12-01] MEDS: VANCOMYCIN 1.5 GM in SOD CHLORIDE 0.9% 250 ML IVPB ×2 (01:00→12:52)
[2017-12-01] MEDS: Insulin NOVOLOG SS MILD Algorithm (NPO/TPN/ENTERAL FEEDS) SC ×6 (01:00→21:00)
[2017-12-01] MEDS: DOXAZOSIN 2 MG TAB GTB ×2 (01:01→20:52)
[2017-12-01] MEDS: IPRATROPIUM (HFA) 12.9 GM INHALER INH ×2 (01:02→09:10)
[2017-12-01] MEDS: ALBUTEROL HFA 8 GM INHALER INH ×2 (01:02→09:10)
[2017-12-01] MEDS: PROPOFOL 100 ML IV ×2 (02:24→04:50)
[2017-12-01 05:14] LABS: ADD MAN DIFF? NO
[2017-12-01 05:16] LABS: BASOPHILS % 0.4 % (0.0-2.0); EOSINOPHILS # 0.2 10^3/ul (0.0-0.5); EOSINOPHILS % 2.1 % (0.0-7.0); HEMATOCRIT 43.6 % (42.0-52.0); HEMOGLOBIN 13.6 g/dl (14.0-18.0); LYMPHOCYTES # 2.1 10^3/ul (0.8-2.9); LYMPHOCYTES % 19.3 % (15.0-51.0); MEAN CORPUSCULAR HEMOGLOBIN 29.8 pg (29.0-33.0); MEAN CORPUSCULAR HGB CONC 31.2 g/dl (32.0-37.0); MEAN CORPUSCULAR VOLUME 95.6 fl (82.0-101.0); MEAN PLATELET VOLUME 11.4 fl (7.4-10.4); MONOCYTE # 0.7 10^3/ul (0.3-0.9); MONOCYTES % 6.4 % (0.0-11.0); NEUTROPHIL # 7.8 10^3/ul (1.6-7.5); NEUTROPHILS % 70.7 % (39.0-77.0); PLATELET COUNT 180 10^3/UL (140-415); RED BLOOD COUNT 4.56 10^6/ul (4.70-6.10); RED CELL DISTRIBUTION WIDTH 12.9 % (11.5-14.5)
[2017-12-01 05:44] LABS: ANION GAP 5 (5-13); BLOOD UREA NITROGEN 34 mg/dl (7-20); CALCIUM 8.9 mg/dl (8.4-10.2); CARBON DIOXIDE 40 mmol/L (21-31); CHLORIDE 98 mmol/L (97-110); CREATININE 0.75 mg/dl (0.61-1.24); Estimated GFR > 60 mL/min (>60); GLUCOSE 123 mg/dl (70-220); MAGNESIUM 2.2 mg/dl (1.7-2.5); POTASSIUM 3.2 mmol/L (3.5-5.1); SODIUM 143 mmol/L (135-144)
[2017-12-01] MEDS: PANTOPRAZOLE 40 MG INJ IV (05:53)
[2017-12-01] MEDS: BUMETANIDE 0.5 MG TAB PO (05:54)
[2017-12-01] MEDS: BUDESONIDE (NEB) 0.5MG/2ML AMP INH ×2 (08:00→20:35)
[2017-12-01] MEDS: LOSARTAN 50 MG TAB PO (09:00)
[2017-12-01] MEDS: DIAZEPAM 5 MG TAB PO (09:00)
[2017-12-01] MEDS: EZETIMIBE 10 MG TAB PO (09:00)
[2017-12-01] MEDS: QUETIAPINE 25 MG TAB NGT ×2 (09:00→20:52)
[2017-12-01] MEDS: predniSONE 20 MG TAB PO (09:00)
[2017-12-01] MEDS: DOCUSATE SODIUM 10 MG/ML (10ML CUP) PO (09:00)
[2017-12-01] MEDS: HALOPERIDOL 5 MG INJ IM (09:43)
[2017-12-01 10:15] LABS: AADO2 Arterial 128.7 mmHg (7.0-24.0); Allen Test ACCEPTAB; Arterial Blood Gas Oxygen Sat 87.5 mmHG (95.0-98.0); Arterial COHb 0.6 % (0.0-3.0); Arterial Fraction of Oxyhgb 86.7 % (93.0-99.0); Arterial HCO3 42.1 mmol/L (22.0-26.0); Arterial MetHb 0.3 % (0.0-1.5); Blood Gas PS 10; MODE VENT - CPAP; Site Right Radial
[2017-12-01] MEDS: ENOXAPARIN 40 MG/0.4 ML SYG SC (10:44)
[2017-12-01] MEDS: POTASSIUM CHLORIDE 50 ML IVPB ×3 (14:13→19:02)
[2017-12-01] MEDS ORDERED: IPRATROPIUM (NEB) 0.5 MG/2.5 ML AMP HHN (17:30)
[2017-12-01] MEDS ORDERED: LEVALBUTEROL (NEB) 0.63 MG/3 ML AMP HHN (17:30)
[2017-12-01] MEDS: BUMETANIDE 1 MG INJ IV (18:25)
[2017-12-01] MEDS: LEVALBUTEROL (NEB) 0.63 MG/3 ML AMP HHN (20:35)
[2017-12-01] MEDS: IPRATROPIUM (NEB) 0.5 MG/2.5 ML AMP HHN (20:35)
[2017-12-02] MEDS: Insulin NOVOLOG SS MILD Algorithm (NPO/TPN/ENTERAL FEEDS) SC ×2 (01:00→05:00)
[2017-12-02] MEDS: VANCOMYCIN 1.5 GM in SOD CHLORIDE 0.9% 250 ML IVPB ×2 (01:10→14:21)
[2017-12-02] MEDS: LEVALBUTEROL (NEB) 0.63 MG/3 ML AMP HHN ×4 (01:46→20:17)
[2017-12-02] MEDS: IPRATROPIUM (NEB) 0.5 MG/2.5 ML AMP HHN ×4 (01:46→20:16)
[2017-12-02] MEDS: ONDANSETRON 4 MG INJ IV (02:28)
[2017-12-02] MEDS: HALOPERIDOL 5 MG INJ IM (04:29)
[2017-12-02] MEDS: morphine 2 MG INJ IV ×3 (05:06→17:10)
[2017-12-02] MEDS: PANTOPRAZOLE 40 MG INJ IV (05:08)
[2017-12-02] MEDS: BUMETANIDE 1 MG INJ IV ×2 (05:08→18:29)
[2017-12-02 05:14] LABS: ADD MAN DIFF? NO
[2017-12-02 05:20] LABS: WHITE BLOOD COUNT 11.8 10^3/ul (4.8-10.8)
[2017-12-02 05:20] LABS: BASOPHILS % 0.3 % (0.0-2.0); EOSINOPHILS # 0.2 10^3/ul (0.0-0.5); EOSINOPHILS % 1.4 % (0.0-7.0); HEMATOCRIT 43.8 % (42.0-52.0); HEMOGLOBIN 13.6 g/dl (14.0-18.0); LYMPHOCYTES % 17.3 % (15.0-51.0); MEAN CORPUSCULAR HEMOGLOBIN 29.4 pg (29.0-33.0); MEAN CORPUSCULAR HGB CONC 31.1 g/dl (32.0-37.0); MEAN CORPUSCULAR VOLUME 94.8 fl (82.0-101.0); MEAN PLATELET VOLUME 11.5 fl (7.4-10.4); MONOCYTE # 0.7 10^3/ul (0.3-0.9); MONOCYTES % 5.8 % (0.0-11.0); NEUTROPHIL # 8.8 10^3/ul (1.6-7.5); NEUTROPHILS % 74.4 % (39.0-77.0); PLATELET COUNT 184 10^3/UL (140-415); RED BLOOD COUNT 4.62 10^6/ul (4.70-6.10)
[2017-12-02 05:51] LABS: ANION GAP 8 (5-13); BLOOD UREA NITROGEN 21 mg/dl (7-20); CALCIUM 9.3 mg/dl (8.4-10.2); CARBON DIOXIDE 40 mmol/L (21-31); CHLORIDE 98 mmol/L (97-110); CREATININE 0.74 mg/dl (0.61-1.24); Estimated GFR > 60 mL/min (>60); GLUCOSE 100 mg/dl (70-220); POTASSIUM 3.1 mmol/L (3.5-5.1); SODIUM 146 mmol/L (135-144)
[2017-12-02] MEDS: POTASSIUM CHLORIDE 50 ML IVPB ×2 (08:27→10:34)
[2017-12-02] MEDS: POTASSIUM CHLORIDE (SR) 20 MEQ TAB PO (08:27)
[2017-12-02] MEDS: BUDESONIDE (NEB) 0.5MG/2ML AMP INH ×2 (08:50→20:17)
[2017-12-02] MEDS: LOSARTAN 50 MG TAB PO (10:01)
[2017-12-02] MEDS: SERTRALINE 50 MG TAB PO (10:05)
[2017-12-02] MEDS: QUETIAPINE 25 MG TAB NGT ×2 (10:06→21:09)
[2017-12-02] MEDS: predniSONE 10 MG TAB PO (10:08)
[2017-12-02] MEDS: EZETIMIBE 10 MG TAB PO (10:10)
[2017-12-02] MEDS: DOCUSATE SODIUM 10 MG/ML (10ML CUP) PO (10:11)
[2017-12-02] MEDS: ENOXAPARIN 40 MG/0.4 ML SYG SC (10:15)
[2017-12-02] MEDS: FINASTERIDE 5 MG TAB PO (10:26)
[2017-12-02] MEDS: DIAZEPAM 5 MG TAB PO (10:26)
[2017-12-02] MEDS: POTASSIUM CHLORIDE 20 MEQ POWDER FOR ORAL SOLN PO (11:10)
[2017-12-02] MEDS ORDERED: INSULIN ASPART [NOVOLOG] 3 ML PEN SC (12:00)
[2017-12-02 13:43] LABS: VANCOMYCIN,TROUGH 14.2 ug/ml (10.0-20.0)
[2017-12-02] MEDS: INSULIN ASPART [NOVOLOG] 3 ML PEN SC ×3 (14:00→21:00)
[2017-12-02 15:32] LABS: AADO2 Arterial 85.2 mmHg (7.0-24.0); Allen Test ACCEPTAB; Arterial Base Excess 6.8 mmol/L (-3.0-3); Arterial Blood Gas Oxygen Sat 89.9 mmHG (95.0-98.0); Arterial COHb 0.9 % (0.0-3.0); Arterial Fraction of Oxyhgb 88.9 % (93.0-99.0); Arterial HCO3 34.3 mmol/L (22.0-26.0); Arterial MetHb 0.2 % (0.0-1.5); Arterial Total Hemglobin 15.1 g/dl (12.0-18.0); Arterial pCO2 60.6 mmhg (35-45); MODE NASAL CANNULA; Site Left Radial
[2017-12-02] MEDS: TAMSULOSIN (SR) 0.4 MG CAP PO (21:09)
[2017-12-03] MEDS: morphine 2 MG INJ IV ×2 (01:51→10:25)
[2017-12-03] MEDS: LEVALBUTEROL (NEB) 0.63 MG/3 ML AMP HHN ×5 (01:58→20:04)
[2017-12-03] MEDS: IPRATROPIUM (NEB) 0.5 MG/2.5 ML AMP HHN ×5 (01:58→20:05)
[2017-12-03] MEDS: ACCU-CHEK XX (02:00)
[2017-12-03] MEDS: VANCOMYCIN 1.5 GM in SOD CHLORIDE 0.9% 250 ML IVPB ×2 (02:42→12:43)
[2017-12-03] MEDS: PANTOPRAZOLE 40 MG INJ IV (06:10)
[2017-12-03] MEDS: BUMETANIDE 1 MG INJ IV ×2 (06:12→18:13)
[2017-12-03 07:01] LABS: ADD MAN DIFF? NO
[2017-12-03 07:12] LABS: WHITE BLOOD COUNT 14.9 10^3/ul (4.8-10.8)
[2017-12-03 07:12] LABS: BASOPHIL # 0.1 10^3/ul (0.0-0.1); BASOPHILS % 0.4 % (0.0-2.0); EOSINOPHILS # 0.1 10^3/ul (0.0-0.5); EOSINOPHILS % 0.6 % (0.0-7.0); HEMOGLOBIN 13.8 g/dl (14.0-18.0); LYMPHOCYTES # 2.4 10^3/ul (0.8-2.9); LYMPHOCYTES % 16.2 % (15.0-51.0); MEAN CORPUSCULAR HEMOGLOBIN 29.6 pg (29.0-33.0); MEAN CORPUSCULAR HGB CONC 32.9 g/dl (32.0-37.0); MEAN CORPUSCULAR VOLUME 90.1 fl (82.0-101.0); MEAN PLATELET VOLUME 12.1 fl (7.4-10.4); MONOCYTE # 0.9 10^3/ul (0.3-0.9); MONOCYTES % 6.2 % (0.0-11.0); NEUTROPHIL # 11.3 10^3/ul (1.6-7.5); NEUTROPHILS % 75.9 % (39.0-77.0); PLATELET COUNT 189 10^3/UL (140-415); RED BLOOD COUNT 4.66 10^6/ul (4.70-6.10); RED CELL DISTRIBUTION WIDTH 12.8 % (11.5-14.5)
[2017-12-03 07:52] LABS: ANION GAP 10 (5-13); BLOOD UREA NITROGEN 19 mg/dl (7-20); CALCIUM 9.5 mg/dl (8.4-10.2); CARBON DIOXIDE 36 mmol/L (21-31); CHLORIDE 91 mmol/L (97-110); CREATININE 0.74 mg/dl (0.61-1.24); Estimated GFR > 60 mL/min (>60); GLUCOSE 102 mg/dl (70-220); POTASSIUM 3.1 mmol/L (3.5-5.1); SODIUM 137 mmol/L (135-144)
[2017-12-03] MEDS: INSULIN ASPART [NOVOLOG] 3 ML PEN SC ×4 (07:55→20:37)
[2017-12-03] MEDS: BUDESONIDE (NEB) 0.5MG/2ML AMP INH ×3 (08:00→20:05)
[2017-12-03] MEDS: DOCUSATE SODIUM 10 MG/ML (10ML CUP) PO (09:54)
[2017-12-03] MEDS: QUETIAPINE 25 MG TAB NGT ×2 (09:54→20:24)
[2017-12-03] MEDS: LOSARTAN 50 MG TAB PO (09:54)
[2017-12-03] MEDS: FINASTERIDE 5 MG TAB PO (09:54)
[2017-12-03] MEDS: predniSONE 20 MG TAB PO (09:54)
[2017-12-03] MEDS: EZETIMIBE 10 MG TAB PO (09:54)
[2017-12-03] MEDS: ENOXAPARIN 40 MG/0.4 ML SYG SC (10:01)
[2017-12-03] MEDS: POTASSIUM CHLORIDE (SR) 20 MEQ TAB PO (12:41)
[2017-12-03] MEDS: POTASSIUM CHLORIDE 100 ML IVPB ×3 (15:23→20:24)
[2017-12-03] MEDS: HALOPERIDOL 5 MG INJ IM ×2 (16:59→22:49)
[2017-12-03] MEDS: TAMSULOSIN (SR) 0.4 MG CAP PO (20:24)
[2017-12-03] MEDS: LORAZEPAM 2 MG INJ IV (20:26)
[2017-12-04] MEDS: VANCOMYCIN 1.5 GM in SOD CHLORIDE 0.9% 250 ML IVPB ×2 (00:16→15:03)
[2017-12-04] MEDS: LORAZEPAM 2 MG INJ IV (00:16)
[2017-12-04] MEDS: IPRATROPIUM (NEB) 0.5 MG/2.5 ML AMP HHN ×4 (01:56→19:53)
[2017-12-04] MEDS: LEVALBUTEROL (NEB) 0.63 MG/3 ML AMP HHN ×4 (01:56→19:53)
[2017-12-04] MEDS: ACCU-CHEK XX (02:00)
[2017-12-04] MEDS: PANTOPRAZOLE 40 MG INJ IV (05:06)
[2017-12-04] MEDS: BUMETANIDE 1 MG INJ IV (05:13)
[2017-12-04 07:46] LABS: ANION GAP 11 (5-13); BLOOD UREA NITROGEN 23 mg/dl (7-20); CALCIUM 9.6 mg/dl (8.4-10.2); CARBON DIOXIDE 32 mmol/L (21-31); CHLORIDE 96 mmol/L (97-110); CREATININE 0.93 mg/dl (0.61-1.24); Estimated GFR > 60 mL/min (>60); GLUCOSE 109 mg/dl (70-220); POTASSIUM 3.7 mmol/L (3.5-5.1); SODIUM 139 mmol/L (135-144)
[2017-12-04] MEDS: INSULIN ASPART [NOVOLOG] 3 ML PEN SC ×4 (07:55→20:44)
[2017-12-04] MEDS: BUDESONIDE (NEB) 0.5MG/2ML AMP INH ×2 (08:24→19:52)
[2017-12-04] MEDS: QUETIAPINE 25 MG TAB NGT ×2 (09:00→20:37)
[2017-12-04] MEDS: DOCUSATE SODIUM 10 MG/ML (10ML CUP) PO (09:00)
[2017-12-04] MEDS: SERTRALINE 50 MG TAB PO (09:00)
[2017-12-04] MEDS: EZETIMIBE 10 MG TAB PO (09:00)
[2017-12-04] MEDS: LOSARTAN 50 MG TAB PO (09:00)
[2017-12-04] MEDS: FINASTERIDE 5 MG TAB PO (09:00)
[2017-12-04] MEDS: ENOXAPARIN 40 MG/0.4 ML SYG SC (10:17)
[2017-12-04] MEDS: BUMETANIDE 1 MG TAB PO ×2 (17:55→20:37)
[2017-12-04] MEDS: TAMSULOSIN (SR) 0.4 MG CAP PO (20:37)
[2017-12-04] MEDS: predniSONE 10 MG TAB PO (20:37)
[2017-12-05] MEDS: VANCOMYCIN 1.5 GM in SOD CHLORIDE 0.9% 250 ML IVPB (01:32)
[2017-12-05] MEDS: ACCU-CHEK XX (02:00)
[2017-12-05] MEDS: IPRATROPIUM (NEB) 0.5 MG/2.5 ML AMP HHN ×2 (02:45→09:01)
[2017-12-05] MEDS: LEVALBUTEROL (NEB) 0.63 MG/3 ML AMP HHN ×2 (02:45→09:01)
[2017-12-05] MEDS: morphine LIQ (10 MG/5 ML) CUP PO ×2 (02:55→04:55)
[2017-12-05] MEDS: HYDROCODONE/APAP (10/325) TAB PO (04:01)
[2017-12-05] MEDS: PANTOPRAZOLE 40 MG INJ IV ×2 (05:27→09:13)
[2017-12-05] MEDS: BUMETANIDE 1 MG TAB PO (05:27)
[2017-12-05] MEDS: BUDESONIDE (NEB) 0.5MG/2ML AMP INH (09:03)
[2017-12-05 09:14] LABS: ADD MAN DIFF? NO
[2017-12-05] MEDS: QUETIAPINE 25 MG TAB NGT (09:14)
[2017-12-05] MEDS: EZETIMIBE 10 MG TAB PO (09:14)
[2017-12-05] MEDS: DOCUSATE SODIUM 10 MG/ML (10ML CUP) PO (09:14)
[2017-12-05] MEDS: LOSARTAN 50 MG TAB PO (09:15)
[2017-12-05] MEDS: FINASTERIDE 5 MG TAB PO (09:15)
[2017-12-05 09:21] LABS: BASOPHIL # 0.1 10^3/ul (0.0-0.1); BASOPHILS % 0.6 % (0.0-2.0); EOSINOPHILS # 0.1 10^3/ul (0.0-0.5); EOSINOPHILS % 0.6 % (0.0-7.0); HEMATOCRIT 45.3 % (42.0-52.0); HEMOGLOBIN 14.4 g/dl (14.0-18.0); LYMPHOCYTES # 1.8 10^3/ul (0.8-2.9); MEAN CORPUSCULAR HEMOGLOBIN 29.2 pg (29.0-33.0); MEAN CORPUSCULAR HGB CONC 31.8 g/dl (32.0-37.0); MEAN CORPUSCULAR VOLUME 91.9 fl (82.0-101.0); MEAN PLATELET VOLUME 12.4 fl (7.4-10.4); MONOCYTE # 1.2 10^3/ul (0.3-0.9); MONOCYTES % 7.4 % (0.0-11.0); NEUTROPHILS % 79.8 % (39.0-77.0); PLATELET COUNT 163 10^3/UL (140-415); POSITIVE DIFF @See below; RED BLOOD COUNT 4.93 10^6/ul (4.70-6.10); RED CELL DISTRIBUTION WIDTH 13.2 % (11.5-14.5)
[2017-12-05 09:21] LABS: WHITE BLOOD COUNT 16.3 10^3/ul (4.8-10.8)
[2017-12-05] MEDS: INSULIN ASPART [NOVOLOG] 3 ML PEN SC ×2 (09:29→11:50)
[2017-12-05] MEDS: ENOXAPARIN 40 MG/0.4 ML SYG SC (09:30)
[2017-12-05 09:43] LABS: PHOSPHORUS 4.1 mg/dl (2.5-4.9)
[2017-12-05 09:43] LABS: MAGNESIUM 1.7 mg/dl (1.7-2.5)
[2017-12-05 10:00] LABS: ANION GAP 14 (5-13); BLOOD UREA NITROGEN 21 mg/dl (7-20); CALCIUM 9.5 mg/dl (8.4-10.2); CARBON DIOXIDE 29 mmol/L (21-31); CHLORIDE 92 mmol/L (97-110); CREATININE 0.78 mg/dl (0.61-1.24); Estimated GFR > 60 mL/min (>60); GLUCOSE 112 mg/dl (70-220); POTASSIUM 3.6 mmol/L (3.5-5.1); SODIUM 135 mmol/L (135-144)
== END 2017-12-05 15:50 | disposition home or self-care (01) | DRG 870 ==
LOC: TEL 12-02 23:47 → ICU 11-23 00:13 → FTE 22:36 → ICU 11-23 02:12
PROVIDERS: Family Medicine
PROC: 5A09357 Assistance with Respiratory Ventilation, Less than 24 Consecutive Hours, Continuous Positive Airway Pressure (ICD-10-PCS; 2017-11-22)
PROC: 0BH18EZ Insertion of Endotracheal Airway into Trachea, Via Natural or Artificial Opening Endoscopic (ICD-10-PCS; principal; 2017-11-24)
PROC: 5A1955Z Respiratory Ventilation, Greater than 96 Consecutive Hours (ICD-10-PCS; 2017-11-24)
DX: A41.9 Sepsis, unspecified organism (principal); J18.9 Pneumonia, unspecified organism; G92 Toxic encephalopathy; J96.22 Acute and chronic respiratory failure with hypercapnia; J96.21 Acute and chronic respiratory failure with hypoxia; I50.33 Acute on chronic diastolic (congestive) heart failure; J44.1 Chronic obstructive pulmonary disease with (acute) exacerbation; N17.9 Acute kidney failure, unspecified; N13.8 Other obstructive and reflux uropathy; I82.612 Acute embolism and thrombosis of superficial veins of left upper extremity; I11.0 Hypertensive heart disease with heart failure; E78.5 Hyperlipidemia, unspecified; E66.01 Morbid (severe) obesity due to excess calories; F32.9 Major depressive disorder, single episode, unspecified; G47.33 Obstructive sleep apnea (adult) (pediatric); R73.03 Prediabetes; N40.1 Benign prostatic hyperplasia with lower urinary tract symptoms; E87.6 Hypokalemia; T85.868A Thrombosis due to other internal prosthetic devices, implants and grafts, initial encounter; Y84.8 Other medical procedures as the cause of abnormal reaction of the patient, or of later complication, without mention of misadventure at the time of the procedure; R78.81 Bacteremia; Y92.238 Other place in hospital as the place of occurrence of the external cause; Z68.37 Body mass index [BMI] 37.0-37.9, adult; Z87.891 Personal history of nicotine dependence; Z91.19 Patient's noncompliance with other medical treatment and regimen
CPT/HCPCS: 36415; 36600; 70551; 71045; 80048; 80053; 80061; 80202; 81001; 82803; 82962; 83036; 83605; 83735; 83880; 84100; 84484; 85025; 85610; 85730; 87040; 87081; 87086; 92526; 92610; 93005; 93306; 93312; 93971; 94002; 94003; 94640; 94660; 94664; 94770; 96374; 97161; 99291-25